=== PATIENT | female | born 1955 | race Caucasian/White ===

== ENCOUNTER 2020-11-28 06:24 | Outpatient (REF) | payer OTHER, SELFPAY ==
[2020-11-28 07:31] LABS: Alanine Aminotransferase 13 U/L (0-31); Albumin Level 4.3 g/dL (3.5-5.0); Alkaline Phosphatase 68 U/L (39-117); Aspartate Amino Transferase 20 U/L (5-31); Bilirubin Total 0.6 mg/dL (0.0-1.0); Blood Urea Nitrogen 12 mg/dL (9-16); Calcium 8.7 mg/dL (8.4-10.2); Cholesterol 169 mg/dL; Estimated Glomerular Filt Rate > 60; Glucose Fasting 107 mg/dL (60-99); HDL Cholesterol 65 mg/dL; LDL Cholesterol Calculated 86 mg/dl; Total Protein 6.3 g/dL (6.5-8.0); Triglycerides 92 mg/dL
[2020-11-28 07:45] LABS: Anion Gap 10 (12-20); Carbon Dioxide 27 mmol/L (22-29); Chloride 107 mmol/L (96-108); Potassium 4.3 mmol/L (3.3-5.1); Sodium 140 mmol/L (135-145)
== END 2020-11-28 06:25 | disposition home or self-care (01) ==
LOC: HO.LAB 06:24
PROVIDERS: Visit Provider Internal Medicine
DX: E78.00 Pure hypercholesterolemia, unspecified (principal)
CPT/HCPCS: 36415; 80053; 80061

== ENCOUNTER 2020-12-25 13:09 | Outpatient (REF) | payer OTHER, SELFPAY ==
--- NOTE | ~2020-12-25 | XR_ITS ---
EXAMINATION: RIGHT KNEE, LEFT SHOULDER AND CERVICAL SPINE X-RAYS CLINICAL INFORMATION: Pain COMPARISON: Previous knee x-ray November 2013 and cervical spine x-ray February 2012 TECHNIQUE: 3 views of the right knee, 4 views of the left shoulder and 3 views of the cervical spine FINDINGS: Right knee: There is a 3 component right knee replacement in satisfactory position. No fracture or dislocation is seen. This is new in the interval from 2013. There is no joint effusion. Left shoulder: Bone alignment is normal. No fracture or dislocation is seen. The glenohumeral joint is normal. There is arthritis at the acromioclavicular joint. Soft tissues are unremarkable. Cervical spine: Bone alignment is normal. No fracture or dislocation is seen. There is anterior fusion hardware at C5,C6 and C7. Orthopedic hardware is intact. There is bony fusion or ankylosis at the C5-C6 and C6-C7 disc spaces. There is mild degenerative spondylosis at C4-C5 and C7-T1. Prevertebral soft tissues are normal. XR/XR shoulder LT min 2V IMPRESSION: Right knee: Right knee replacement in satisfactory position. Left shoulder: Mild arthritis at the acromioclavicular joint. Cervical spine: Postsurgical change at C5-C6 and C6-C7. Mild degenerative spondylosis at C4-C5 and C7-T1.
--- NOTE | ~2020-12-25 | XR_ITS ---
EXAMINATION: RIGHT KNEE, LEFT SHOULDER AND CERVICAL SPINE X-RAYS CLINICAL INFORMATION: Pain COMPARISON: Previous knee x-ray November 2013 and cervical spine x-ray February 2012 TECHNIQUE: 3 views of the right knee, 4 views of the left shoulder and 3 views of the cervical spine FINDINGS: Right knee: There is a 3 component right knee replacement in satisfactory position. No fracture or dislocation is seen. This is new in the interval from 2013. There is no joint effusion. Left shoulder: Bone alignment is normal. No fracture or dislocation is seen. The glenohumeral joint is normal. There is arthritis at the acromioclavicular joint. Soft tissues are unremarkable. Cervical spine: Bone alignment is normal. No fracture or dislocation is seen. There is anterior fusion hardware at C5,C6 and C7. Orthopedic hardware is intact. There is bony fusion or ankylosis at the C5-C6 and C6-C7 disc spaces. There is mild degenerative spondylosis at C4-C5 and C7-T1. Prevertebral soft tissues are normal. XR/XR knee RT 3V IMPRESSION: Right knee: Right knee replacement in satisfactory position. Left shoulder: Mild arthritis at the acromioclavicular joint. Cervical spine: Postsurgical change at C5-C6 and C6-C7. Mild degenerative spondylosis at C4-C5 and C7-T1.
--- NOTE | ~2020-12-25 | XR_ITS ---
EXAMINATION: RIGHT KNEE, LEFT SHOULDER AND CERVICAL SPINE X-RAYS CLINICAL INFORMATION: Pain COMPARISON: Previous knee x-ray November 2013 and cervical spine x-ray February 2012 TECHNIQUE: 3 views of the right knee, 4 views of the left shoulder and 3 views of the cervical spine FINDINGS: Right knee: There is a 3 component right knee replacement in satisfactory position. No fracture or dislocation is seen. This is new in the interval from 2013. There is no joint effusion. Left shoulder: Bone alignment is normal. No fracture or dislocation is seen. The glenohumeral joint is normal. There is arthritis at the acromioclavicular joint. Soft tissues are unremarkable. Cervical spine: Bone alignment is normal. No fracture or dislocation is seen. There is anterior fusion hardware at C5,C6 and C7. Orthopedic hardware is intact. There is bony fusion or ankylosis at the C5-C6 and C6-C7 disc spaces. There is mild degenerative spondylosis at C4-C5 and C7-T1. Prevertebral soft tissues are normal. XR/XR cervical spine 3V IMPRESSION: Right knee: Right knee replacement in satisfactory position. Left shoulder: Mild arthritis at the acromioclavicular joint. Cervical spine: Postsurgical change at C5-C6 and C6-C7. Mild degenerative spondylosis at C4-C5 and C7-T1.
== END 2020-12-25 13:10 | disposition home or self-care (01) ==
LOC: HO.XRAY 13:09
PROVIDERS: PCP Internal Medicine; Visit Provider Internal Medicine
DX: M54.2 Cervicalgia (principal); M25.512 Pain in left shoulder; M25.561 Pain in right knee
CPT/HCPCS: 72040; 73030; 73562

== ENCOUNTER → 2021-03-08 14:28 | Outpatient (BNVA) | payer MEDICARE, OTHER, SELFPAY | PROVIDERS: PCP Internal Medicine | DX: L30.9 Dermatitis, unspecified (principal); R82.90 Unspecified abnormal findings in urine; I10 Essential (primary) hypertension; E78.00 Pure hypercholesterolemia, unspecified; Z88.3 Allergy status to other anti-infective agents; Z88.8 Allergy status to other drugs, medicaments and biological substances | CPT/HCPCS: 99202 ==

== ENCOUNTER 2021-05-31 06:32 | Outpatient (REF) | payer MEDICARE, OTHER, SELFPAY ==
[2021-05-31 08:54] LABS: Alanine Aminotransferase 18 U/L (0-31); Albumin Level 4.3 g/dL (3.5-5.0); Alkaline Phosphatase 71 U/L (39-117); Anion Gap 12 (12-20); Aspartate Amino Transferase 21 U/L (5-31); Bilirubin Total 0.6 mg/dL (0.0-1.0); Blood Urea Nitrogen 10 mg/dL (9-16); Calcium 9.5 mg/dL (8.4-10.2); Carbon Dioxide 28 mmol/L (22-29); Chloride 108 mmol/L (96-108); Cholesterol 181 mg/dL; Estimated Glomerular Filt Rate > 60; Glucose Fasting 106 mg/dL (60-99); HDL Cholesterol 74 mg/dL; LDL Cholesterol Calculated 91 mg/dl; Potassium 5.1 mmol/L (3.3-5.1); Sodium 143 mmol/L (135-145); Total Protein 6.5 g/dL (6.5-8.0); Triglycerides 80 mg/dL
== END 2021-05-31 06:33 | disposition home or self-care (01) ==
LOC: HO.LAB 06:32
PROVIDERS: PCP Internal Medicine; Visit Provider Internal Medicine
DX: E78.5 Hyperlipidemia, unspecified (principal); I10 Essential (primary) hypertension
CPT/HCPCS: 36415; 80053; 80061

== ENCOUNTER → 2021-07-11 11:00 | Outpatient (BNVA) | payer MEDICARE, OTHER, SELFPAY | PROVIDERS: PCP Internal Medicine; Visit Provider Surgery | DX: M67.432 Ganglion, left wrist (principal) | CPT/HCPCS: 99212 ==

== ENCOUNTER → 2021-08-07 13:49 | Outpatient (BNVA) | payer MEDICARE, OTHER, SELFPAY | PROVIDERS: Visit Provider Orthopaedic Surgery | DX: M67.432 Ganglion, left wrist (principal) | CPT/HCPCS: 99202 ==

== ENCOUNTER 2021-08-26 07:41 | Day surgery (SDC) | payer MEDICARE, OTHER, SELFPAY ==
[2021-08-19 11:08] VITALS: BMI 26.7
[2021-08-26] VITALS (7 sets, daily range): BP systolic 117–150; BP diastolic 63–81; PULSE 75–102; RESP 16; TEMP 36.1–36.5; O2SAT 95–100
[2021-08-26] MEDS: Lactated Ringers 1,000 ML 50 ML IVCONT (08:28)
--- NOTE | 2021-08-26 09:40 | HO.ANESPROP2 ---
HPI - Anesthesia Eval Consult details Narrative: 66 yo female patient for excisional biopsy of Left radial volar wrist ganglion PMFSH Active Problems Active Problems: All Active Problems (Updated 08/26/21 @ 08:05 by Arline Coats) Dermatitis (Acute) Ganglion cyst of volar aspect of left wrist (Acute) Ganglion cyst of dorsum of left wrist (Acute) Bladder prolapse (Acute) Left shoulder pain (Acute) Right knee pain (Acute) Neck pain (Acute) Impaired glucose tolerance (Acute) Onychogryposis (Acute) Pure hypercholesterolemia (Acute) Essential hypertension (Acute) Past Medical History Medical History (Updated 08/26/21 @ 08:05 by Arline Coats) Active asthma Bladder prolapse COVID-19 vaccine series completed Essential hypertension Ganglion cyst of dorsum of left wrist Impaired glucose tolerance Left shoulder pain Neck pain Onychogryposis Pure hypercholesterolemia Right knee pain Family History Family History Father CVD (cardiovascular disease) Stroke Mother Chronic mental illness Multiple myeloma Sister Automobile accident Family/Other Chronic mental illness Daughter In good health Daughter In good health Family history of problems with anesthesia: No Surgical History Surgical History (Updated 08/19/21 @ 11:01 by Marybel Kolb RN) History of arthroscopic knee surgery History of laparoscopic cholecystectomy History of surgical removal of ganglion cyst History of tubal ligation Hx of cervical discectomy Hx of total knee arthroplasty History of Problems with Anesthesia: Yes (PONV with anesthesia) Social History Social History (Updated 08/07/21 @ 14:18 by Gini Barkley) Housing: House Alcohol intake: former Patient Tobacco Use Status: Never used Tobacco e-Cigarette/Vaping Use: Never Used Second Hand Smoke Exposure: No Advance Directives: No Advance Directives Information Provided: No Advance Directives on File: No service: No Current occupational status: retired 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 Meds Allergies Allergy/AdvReac Type Severity Reaction Status Date / Time lisinopril Allergy Intermediate loss of Verified 08/26/21 08:06 cosciousness metronidazole [From FLAGYL] Allergy Intermediate RASH Verified 08/26/21 08:06 tetracycline [Tetracycline] Allergy Mild RASH Verified 08/26/21 08:06 Active Medications: Current Medications Lactated Ringer's (Lr) 1,000 mls @ 50 mls/hr IVCONT .Q20H OLIVE Last Admin: 08/26/21 08:28 Dose: 50 mls/hr Documented by: Exam Exam Date and Time: August 26, 2021 0940 Height,Weight and Vital Signs: Height 5 ft 7 in Weight 77.564 kg Last Vital Signs Temp 97.0 F 08/26/21 08:16 Pulse 75 08/26/21 08:16 Resp 16 08/26/21 08:16 BP 150/81 H 08/26/21 08:16 Pulse Ox 97 08/26/21 08:16 Airway Mallampati Class: II TM Dist: >3cm Neck ROM: Limited (Ok extension, limited side to side post cervical fusion) Partial: Upper Heart: RRR Lungs: CTAB Assessment and Plan Assessment Anesthesia Assessment: Anesthesia Plan Discussed and Chart Reviewed Final Anesthetic Review Family History of Problems with Anesthesia: No History of Problems with Anesthesia: Yes (PONV with anesthesia) NPO: Yes ASA Class: II Final Preanesthetic Review: No Changes in Pt Med Stat, Meds/Allgs Chart Reviewed, Consent Obtained/Reviewed and Anes Risks/Benef Reviewed Patient Risk: Low Procedure Risk: Low Assessment/Block/Sedation in SS: Assess/Block/Sedation-SS Anesthetic Plan Anesthetic Plan: GA (Dr Cifuentes's request) Disposition: Standard PACU
[2021-08-26] MEDS: Scopolamine 1.5 MG PATCH.TD.3 TRANSDERMA (10:01)
--- NOTE | 2021-08-26 10:15 | P.OP_ITS ---
Operative Note Operative Note Date of Service: 08/26/21 Narrative: Operative Note Narrative: Preop diagnosis: 1. Left recurrent Volar wrist ganglion Postop diagnosis: Same Procedure: 1. Left Volar wrist ganglion excision Surgeon: Angelique Augustin MD Anesthesia: General Findings: Recurrent left volar wrist ganglion, multi lobular Implants: None Tourniquet time: 28 minutes EBL: 5.0 ml Specimen: Volar wrist ganglion Drains: None Complications: None Disposition: Brought to the recovery room in stable condition Plan: Follow-up in 10-14 days for wound check, suture removal and to check pathology Indications: The patient is 66 years old with left recurrent volar wrist ganglion . The risks and benefits of operative treatment, including but not limited to risk of damage to blood vessels, nerves, tendons, infection, recurrence, persistent pain or numbness, incomplete resolution of preoperative symptoms, or need for further surgery were discussed with the patient and they wished to proceed with surgery. Procedure: Once consent was obtained patient was brought back to the operating suite and placed in the operating table in a supine position. . Perioperative antibiotics and anesthesia was administered by the anesthesia team. A tourn iquet was applied to the proximal aspect of the left upper extremity and the limb was prepped and draped in a standard surgical fashion. The limb was elevated exsanguinated with Esmarch bandage and the tourniquet inflated to 250 mm of mercury for a total tourniquet time of 28 minutes. A 3 cm longitudinal incision was made in line with the previous surgical incision and just volar to the current left volar wrist ganglion. The incision was made through the skin the subcutaneous tissues using a 15. Blade. Careful dissection was then made down to the level of the volar wrist ganglion using tenotomy scissors. The ganglion was noted to be multi lobular and situated on top of and just volar to the 1st dorsal compartment tendon sheath. electrocautery was utilized to cauterize several of the small arterial branches from about the ganglion. The ganglion was then carefully dissected free using tenotomy and iris scissors. The stalk to the ganglion was then isolated and cauterized using bipolar electrocautery. The ganglion was then removed and placed on the back table to be sent for histopathology. It contained clear viscous fluid consistent with a ganglion. At this point the tourniquet was deflated and hemostasis obtained with a brief period of local pressure and bipolar electrocautery. The wound was copiously irrigated with normal saline. The subcutaneous layer was closed with 4-0 Vicryl suture, and the skin edges were reapproximated with 5-0 nylon suture. The wound was infiltrated with some 1% lidocaine with epinephrine for postop pain control and a sterile dressing was applied. The patient appears to have tolerated the procedure well and with no complications. All digits were well vascularized conclusion of the case.
--- NOTE | 2021-08-26 10:15 | MHC.SHP ---
Pre-Procedural Eval Section A Date of Service: 08/26/21 The patient is an INPATIENT: No Changes since office visit: No Cold of Flu in the past 2 weeks, No New Medical Problems, No Changes in Medication and No Patient answered all questions The History & Physical has been completed within 30 days and I have reviewed it.: Yes Section B Chief Complaint: ganglion left wrist Allergies: Allergies Allergy/AdvReac Type Severity Reaction Status Date / Time lisinopril Allergy Intermediate loss of Verified 08/26/21 08:06 cosciousness metronidazole [From FLAGYL] Allergy Intermediate RASH Verified 08/26/21 08:06 tetracycline [Tetracycline] Allergy Mild RASH Verified 08/26/21 08:06 Plan I have reviewed the history and physical and performed a pertinent physical examination on my patient. No changes have occurred unless specified.
== END 2021-08-26 13:18 | disposition home or self-care (01) ==
PROVIDERS: PCP Internal Medicine; Visit Provider Orthopaedic Surgery
PROC: (CPT 25112; principal; 2021-08-26 09:10)
DX: M67.432 Ganglion, left wrist (principal); Z88.8 Allergy status to other drugs, medicaments and biological substances; J45.909 Unspecified asthma, uncomplicated; I10 Essential (primary) hypertension; R73.02 Impaired glucose tolerance (oral)
CPT/HCPCS: 25112; 88304; J0690; J1100; J1200; J2250; J2405; J3010

== ENCOUNTER → 2021-09-04 11:38 | Outpatient (BNVA) | payer MEDICARE, OTHER, SELFPAY | PROVIDERS: PCP Internal Medicine; Visit Provider Orthopaedic Surgery | DX: Z48.89 Encounter for other specified surgical aftercare (principal); Z87.39 Personal history of other diseases of the musculoskeletal system and connective tissue | CPT/HCPCS: 99212 ==

== ENCOUNTER 2021-10-08 10:53 | Outpatient (REF) | payer MEDICARE, OTHER, SELFPAY | END 2021-10-08 10:54 | disposition home or self-care (01) | LOC: HO.WFDLDS 10:53 | PROVIDERS: Visit Provider Internal Medicine | DX: U07.1 COVID-19 (principal); Z20.822 Contact with and (suspected) exposure to COVID-19 | CPT/HCPCS: C9803; U0003; U0005 ==

== ENCOUNTER 2021-10-15 07:37 | Outpatient (REF) | payer MEDICARE, OTHER, SELFPAY | END 2021-10-15 07:38 | disposition home or self-care (01) | LOC: HO.WFDLDS 07:37 | PROVIDERS: Visit Provider Internal Medicine | DX: Z20.822 Contact with and (suspected) exposure to COVID-19 (principal) | CPT/HCPCS: C9803; U0003; U0005 ==

== ENCOUNTER 2021-11-22 07:17 | Outpatient (REF) | payer MEDICARE, OTHER, SELFPAY ==
[2021-11-22 08:30] LABS: Alanine Aminotransferase 22 U/L (0-31); Albumin Level 4.2 g/dL (3.5-5.0); Alkaline Phosphatase 77 U/L (39-117); Anion Gap 10 (12-20); Aspartate Amino Transferase 26 U/L (5-31); Bilirubin Total 0.6 mg/dL (0.0-1.0); Blood Urea Nitrogen 11 mg/dL (9-16); Calcium 9.7 mg/dL (8.4-10.2); Carbon Dioxide 29 mmol/L (22-29); Chloride 107 mmol/L (96-108); Cholesterol 185 mg/dL; Estimated Glomerular Filt Rate > 60; Glucose Fasting 109 mg/dL (60-99); HDL Cholesterol 65 mg/dL; LDL Cholesterol Calculated 101 mg/dl; Potassium 4.8 mmol/L (3.3-5.1); Sodium 141 mmol/L (135-145); Total Protein 6.7 g/dL (6.5-8.0); Triglycerides 95 mg/dL
== END 2021-11-22 07:18 | disposition home or self-care (01) ==
LOC: HO.LAB 07:17
PROVIDERS: PCP Internal Medicine; Visit Provider Internal Medicine
DX: E78.5 Hyperlipidemia, unspecified (principal); E78.00 Pure hypercholesterolemia, unspecified
CPT/HCPCS: 36415; 80053; 80061

== ENCOUNTER 2021-12-26 09:05 | Outpatient (REF) | payer MEDICARE, OTHER, SELFPAY ==
[2021-12-28 16:01] LABS: HPV mRNA E6/E7 rflx Not Detected (Not Detected)
== END 2021-12-26 09:06 | disposition home or self-care (01) ==
LOC: HO.LAB 09:05
PROVIDERS: Visit Provider Advanced Practice Midwife
DX: Z01.419 Encounter for gynecological examination (general) (routine) without abnormal findings (principal); Z11.51 Encounter for screening for human papillomavirus (HPV)
CPT/HCPCS: 87624; 88142

== ENCOUNTER 2022-10-20 08:02 | Outpatient (REF) | payer MEDICARE, OTHER, SELFPAY ==
[2022-10-20 09:01] LABS: Alanine Aminotransferase 19 U/L (0-31); Albumin Level 4.4 g/dL (3.5-5.0); Alkaline Phosphatase 80 U/L (39-117); Anion Gap 11 (12-20); Aspartate Amino Transferase 23 U/L (5-31); Bilirubin Total 0.6 mg/dL (0.0-1.0); Blood Urea Nitrogen 12 mg/dL (9-16); Calcium 9.8 mg/dL (8.4-10.2); Carbon Dioxide 30 mmol/L (22-29); Chloride 105 mmol/L (96-108); Cholesterol 188 mg/dL; Estimated Glomerular Filt Rate > 60; Glucose Fasting 114 mg/dL (60-99); HDL Cholesterol 72 mg/dL; LDL Cholesterol Calculated 97 mg/dl; Sodium 141 mmol/L (135-145); Total Protein 6.7 g/dL (6.5-8.0); Triglycerides 96 mg/dL
== END 2022-10-20 08:03 | disposition home or self-care (01) ==
LOC: HO.LAB 08:02
PROVIDERS: PCP Internal Medicine; Visit Provider Internal Medicine
DX: Z00.00 Encounter for general adult medical examination without abnormal findings (principal); E78.5 Hyperlipidemia, unspecified
CPT/HCPCS: 36415; 80053; 80061

== ENCOUNTER 2023-05-18 06:43 | Outpatient (REF) | payer MEDICARE, OTHER, SELFPAY ==
[2023-05-18 07:41] LABS: Alanine Aminotransferase 18 U/L (0-31); Albumin Level 4.1 g/dL (3.5-5.0); Alkaline Phosphatase 67 U/L (39-117); Anion Gap 14 (12-20); Aspartate Amino Transferase 22 U/L (5-31); Bilirubin Total 0.5 mg/dL (0.0-1.0); Blood Urea Nitrogen 11 mg/dL (9-16); Calcium 9.6 mg/dL (8.4-10.2); Carbon Dioxide 24 mmol/L (22-29); Chloride 105 mmol/L (96-108); Cholesterol 192 mg/dL; Estimated Glomerular Filt Rate > 60; Glucose Fasting 111 mg/dL (60-99); HDL Cholesterol 73 mg/dL; LDL Cholesterol Calculated 104 mg/dl; Potassium 4.4 mmol/L (3.3-5.1); Sodium 139 mmol/L (135-145); Total Protein 6.8 g/dL (6.5-8.0); Triglycerides 75 mg/dL
== END 2023-05-18 06:44 | disposition home or self-care (01) ==
LOC: HO.LAB 06:43
PROVIDERS: PCP Internal Medicine; Visit Provider Internal Medicine
DX: R73.02 Impaired glucose tolerance (oral) (principal); E78.5 Hyperlipidemia, unspecified
CPT/HCPCS: 36415; 80053; 80061

== ENCOUNTER 2023-07-08 08:08 | Outpatient (AMB) | payer MEDICARE, OTHER, SELFPAY ==
--- NOTE | 2023-07-08 08:10 | A.OFFPC_ITS ---
Vital Signs 07/08/23 08:11 Height 5 ft 8 in Weight 180 lb BMI 27.4 BP 124/80 Blood Pressure Location Lt brachial Position Sitting Intake Visit Reasons: Annual Exam Intake Note: Patient here for an annual physical exam Saddle Lining Stitcher Required: No Accompanied by: Self / Same As Patient Allergies lisinopril Allergy (Intermediate, Verified 07/08/23 08:22) loss of cosciousness metronidazole [From FLAGYL] Allergy (Intermediate, Verified 07/08/23 08:22) RASH tetracycline [Tetracycline] Allergy (Mild, Verified 07/08/23 08:22) RASH Medication List - Last Reconciled 07/08/23 by Edie Rucker MD albuterol sulfate 90 mcg/actuation 2 puffs inhalation Q6H PRN gabapentin 800 mg PO BEDTIME 90 days metoprolol succinate ER 25 mg PO DAILY simvastatin 10 mg PO BEDTIME Tobacco use date assessed: 11/04/22 Fall risk assessment: No Falls in past year Last assessed Fall Risk: 07/08/23 Dental Screening Dental Screen Date: 07/08/23 Did you have a dental visit in the last 12 months?: Yes Did you have a dental problem in the last 6 months where you did not have access to dental care?: No Was dental information given to patient?: Patient has dentist HPI HPI Comments History of Present Illness Details This is a 68 year female comes for her physical exam. Pap Smear done 2021. Mammogram done January 2023. Colonoscopy done 2015 and next colonoscopy should be 2025. Last pneumonia vaccine was at 59 years old. Will receive another pneumonia vaccine today. Labs were discussed. Has impaired glucose tolerance with no symptoms. No chest pain or shortness of breath. PFSH Medical History Active asthma COVID-19 vaccine series completed Ganglion cyst of volar aspect of left wrist Ganglion cyst of dorsum of left wrist Bladder prolapse Left shoulder pain Right knee pain Neck pain Impaired glucose tolerance Onychogryposis Pure hypercholesterolemia Essential hypertension Surgical History History of colonoscopy History of surgical removal of ganglion cyst Hx of cervical discectomy Hx of total knee arthroplasty History of arthroscopic knee surgery History of laparoscopic cholecystectomy History of tubal ligation Family History Father CVD (cardiovascular disease) Stroke Mother Chronic mental illness Multiple myeloma Sister Automobile accident Family/Other Chronic mental illness Daughter In good health Daughter In good health Social History (Updated 07/08/23 @ 08:26 by Edie Rucker MD) Housing: House Alcohol intake: former Patient Tobacco Use Status: Former Tobacco user e-Cigarette/Vaping Use: Never Used Second Hand Smoke Exposure: No service: No Current occupational status: retired 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 Francisco Gold, Laquita Deleon, Jimmy Obrien and colleagues, with an educational rafael from [employer]. Review of Systems Const All systems reviewed & are unremarkable except as noted in HPI and below Eyes Reports no additional complaints, Denies change in vision and Denies other visual disturbances Card Denies chest pain at rest, Denies chest pain with activity, Denies edema, Denies irregular heart rhythm, Denies claudication, Denies dyspnea, Denies dyspnea on exertion, Denies orthopnea, Denies paroxysmal nocturnal dyspnea and Denies slow heart rate Resp Denies cough, Denies dyspnea and Denies dyspnea on exertion GI Denies abdominal pain, Denies change in bowel habits, Denies excessive flatus, Denies nausea and Denies vomiting Denies urinary incontinence, Denies urinary hesitancy and Denies urinary urgency Musc Denies abnormal gait, Denies atrophy, Denies deformity and Denies limited range of motion Skin/Breast Denies bleeding lesions, Denies changing lesions and Denies rash Neuro Denies abnormal gait and Denies lack of coordination Physical exam (Primary Care) Vital Signs: Last Vital Signs BP 124/80 07/08/23 08:11 BMI result Body Mass Index 27.4 Tobacco/Smoking Status: Tobacco use Status Tobacco use date assessed 11/04/22 07/08/23 08:16 Patient Tobacco Use Status Former Tobacco user 07/08/23 08:26 Tobacco use type Cigarette 07/08/23 08:26 e-Cigarette/Vaping Use Never Used 07/08/23 08:26 Thrive Assessment: Date of Thrive Assessment Date Thrive assessed 11/04/22 07/08/23 08:16 Const Orientation/consciousness: patient oriented x3 HENMT Head: Yes normal to inspection, Yes normocephalic and Yes atraumatic Ears: external ears normal Eyes General: appearance normal, both eyes and all related structures Eyelids: Yes eyelids normal Conjunctivae: conjunctivae normal Neck Neck: Yes normal visual inspection and Yes supple Resp Effort & Inspection: normal respiratory effort Auscultation: clear to auscultation bilaterally Cardio Jugular venous distension: no JVD Rate: regular rate Rhythm: regular rhythm Heart sounds: S1 normal heart sound present and S2 normal heart sound present GI Inspection: Yes normal to inspection Palpation (GI): Soft to palpation and nontender Auscultation: normal bowel sounds Skin General skin exam: no rashes or lesions noted Neuro General: patient oriented x3 and no focal motor deficits Extrem General: Yes full ROM Psych Appearance: grossly normal Immunizations pneumoc 20-gail conj-dip cr(PF) 0.5 mL IM syringe Performing Provider: Edie Rucker MD Performing Location: [facility] Administered by: FREDERIC Allison on 07/08/23 08:41 Dose Route Admin Location Dispensed Lot Number Expiration Date NDC Hearing Impaired Itinerant Teacher 0.5 mL IM Left Deltoid 0.5 mL [id number] 07/12/24 9084-3679-92 [employer] VIS Given Date VIS Provided VIS Publication Date 07/08/23 Single Vaccine 21 Eligibility Eligibility Date Funding Source Not [facility] Eligible 07/08/23 Private Assessment and Plan Assessment & Plan (1) Physical exam: Code(s): Z00.00 - Encounter for general adult medical examination without abnormal findings Plan: Repeat in a year. Orders: Orders Pneumococcal 20 Immunization Today Z23 - Encounter for immunization Medications: New Ventolin HFA 90 mcg/actuation (albuterol sulfate) 2 puffs inhalation Q6H PRN 18 grams 2RF shortness of breath or wheezing 30 days NS J45.909 - Unspecified asthma, uncomplicated Coding Level of Care Code Est Pt Prev Care >65y(59427) Diagnoses Physical exam Z00.00 Time Spent (min) 33
[2023-07-08 08:11] VITALS: BP 124/80; BMI 27.4
== END 2023-07-08 08:40 | disposition home or self-care (01) ==
PROVIDERS: Visit Provider Internal Medicine
DX: Z00.00 Encounter for general adult medical examination without abnormal findings (principal); Z23 Encounter for immunization
CPT/HCPCS: 90471; 90677; 99397

== ENCOUNTER 2023-09-23 08:54 | Outpatient (AMB) | payer MEDICARE, OTHER, SELFPAY ==
--- NOTE | 2023-09-23 08:59 | A.OFFVIS_ITS ---
Intake Vital Signs 09/23/23 09:06 Height 5 ft 8 in Weight 182 lb BMI 27.7 BP 108/66 Blood Pressure Location Lt brachial Position Sitting Pulse 58 Pulse Source Pulse Oximeter Pulse Oximetry (%) 98 Oxygen Delivery Method Room Air Intake Visit Reasons: SAWV Allergies lisinopril Allergy (Intermediate, Verified 09/23/23 09:13) loss of cosciousness metronidazole [From FLAGYL] Allergy (Intermediate, Verified 09/23/23 09:13) RASH tetracycline [Tetracycline] Allergy (Mild, Verified 09/23/23 09:13) RASH Medication List - Last Reconciled 09/23/23 by BONNIE Trevizo gabapentin 800 mg PO BEDTIME 90 days metoprolol succinate ER 25 mg PO DAILY simvastatin 10 mg PO BEDTIME Ventolin HFA 90 mcg/actuation (albuterol sulfate) 2 puffs inhalation Q6H PRN 30 days NS HPI SAWV HPI Details Patient is a 68-year-old female who presents today for subsequent wellness visit. Patient of Dr. Mcclendon. Today we discussed patient's need for bone density screening, patient has declined. Colonoscopy 07/2016 and repeat in 10 years. Pap smear normal 12/2021. Mammogram normal 01/2023. Up-to-date with immunizations. [place] of care was reviewed with the patient and she was provided with a screening schedule. Patient has health care proxy and MOLST forms at home and she will provide office with copies. [facility] Medical History Breast mass Active asthma COVID-19 vaccine series completed Ganglion cyst of volar aspect of left wrist Ganglion cyst of dorsum of left wrist Bladder prolapse Left shoulder pain Right knee pain Neck pain Impaired glucose tolerance Onychogryposis Pure hypercholesterolemia Essential hypertension Surgical History History of colonoscopy History of surgical removal of ganglion cyst Hx of cervical discectomy Hx of total knee arthroplasty History of arthroscopic knee surgery History of laparoscopic cholecystectomy History of tubal ligation Family History Father CVD (cardiovascular disease) Stroke Mother Chronic mental illness Multiple myeloma Sister Automobile accident Family/Other Chronic mental illness Daughter In good health Daughter In good health Social History Housing: House Alcohol intake: former Patient Tobacco Use Status: Former Tobacco user e-Cigarette/Vaping Use: Never Used Second Hand Smoke Exposure: No service: No Current occupational status: retired 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 Cognitive needs: No Hearing needs: No Vision needs: Yes Questionnaire Medicare Wellness Checkup [age] 65-70 What gender do you identify with?: female During the past 4 weeks, how much have you been bothered by emotional problems such as feeling anxious, depressed, irritable, sad or downhearted, and blue?: not at all During the past 4 weeks, has your physical & emotional health limited your social activities with family, friends, neighbors, or groups?: not at all During the past 4 weeks, how much bodily pain have you generally had?: moderate pain During the past 4 weeks, was someone available to help you if you needed & wanted help?: yes, as much as I wanted During the past 4 weeks, what was the hardest physical activity you could do for at least 2 minutes?: heavy Can you get to places out of walking distance without help? (For eg., can you travel alone on buses, taxis or drive your car?): Yes Can you go shopping for groceries or clothes without someone's help?: Yes Can you prepare your own meals?: Yes Can you do your housework without help?: Yes Because of any health problems, do you need the help of another person with your personal care needs such as eating, bathing, dressing or getting around the house?: No Can you handle your own money without help?: Yes During the past 4 weeks, how would you rate your health in general?: very good During the past 4 weeks how have things been going for you?: very well; could hardly better Are you having difficulties driving your car?: no Do you always fasten your seat belt when you are in a car?: yes, usually During past 4 weeks, have you been bothered by the following: never: Falling or dizzy when standing up, Sexual problems?, Trouble eating well?, Teeth or denture problems? and Problems using the telephone? and sometimes: Tiredness or fatigue? Have you fallen 2 or more times in the past year?: No Are you afraid of falling?: No Are you a smoker?: no During the past 4 weeks, how many drinks of wine, beer, or other alcoholic beverages did you have?: no alcohol at all Do you exercise for about 20 minutes 3 or more times a week?: yes, most of the time Have you been given information to help with the following?: yes: Hazards in your house that might hurt you? and yes: Keeping track of your medications? How often do you have trouble taking medicines the way you have been told to take them?: I always take medicine as prescribed How confident are you that you can control & manage most of your health problems?: very confident What is your race?: White Mini Mental State Exam (MMSE) Orientation What is the (year) (season) (date) (day) (month)?: year, season, date, day and month Score Score: 5 Activity of Daily Living Bathing - sponge bath, tub bath or shower: receives no assistance (gets in/out by self, if usual bathing means Dressing - getting clothes from closets & drawers, including inner/outer garments & fasteners.: gets clothes & gets completely dressed without help Toileting - going to the 'toilet room' for urine/bowel elimination & cleaning self/arranging clothes: goes to toilet room, cleans self, arranges clothes without help Transfer: moves in & out of bed and chair without help (may use support object) Continence: controls urination/bowel movements completely by self Feeding: feeds self without help Total Score: 0 Information obtained from: patient Using telephone: independent Traveling: independent Shopping: independent Preparing meals: independent Housework: independent Taking medicine: independent Managing money: independent PHQ-9 Over the last 2 weeks, how often have you been bothered by any of the following problems? 1. Little interest or pleasure in doing things: not at all 2. Feeling down, depressed, or hopeless: not at all 3. Trouble falling or staying asleep, or sleeping too much: not at all 4. Feeling tired or having little energy: not at all 5. Poor appetite or overeating: not at all 6. Feeling bad about yourself - or that you are a failure or have let yourself or your family down: not at all 7. Trouble concentrating on things, such as reading the newspaper or watching television: not at all 8. Moving or speaking so slowly that other people could have noticed. Or the opposite - being so fidgety or restless that you have been moving around a lot more than usual: not at all 9. Thoughts that you would be better off or of hurting yourself in some way: not at all Total score: 0 Depression Screening Interpretation: Negative Depression Screening Done: Yes 64396 - PHQ-9 Billing: Yes Source: Developed by Drs. Francisco Gold, Laquita Deleon, Jimmy Obrien and colleagues, with an educational rafael from [employer]. Physical Exam Vital Signs: Last Vital Signs Pulse 58 09/23/23 09:06 BP 108/66 09/23/23 09:06 Pulse Ox 98 09/23/23 09:06 Oxygen Delivery Method Room Air 09/23/23 09:06 BMI result Body Mass Index 27.7 Const General: cooperative and no acute distress Orientation/consciousness: patient oriented x3 HEENT Other: Whisper test: pass Neuro Other: Balance: Normal Get up and walk: able to Romberg: negative Tandem gait: able to General: patient oriented x3 Assessment & Plan Assessment & Plan (1) Adult general medical exam: Code(s): Z00.00 - Encounter for general adult medical examination without abnormal findings Plan: Repeat in 1 year (2) Impaired glucose tolerance: Code(s): R73.02 - Impaired glucose tolerance (oral) Plan: Low-carbohydrate diet (3) Pure hypercholesterolemia: Code(s): E78.00 - Pure hypercholesterolemia, unspecified Plan: Simvastatin 10 mg at bedtime Low-cholesterol diet (4) Essential hypertension: Code(s): I10 - Essential (primary) hypertension Plan: Metoprolol 25 mg daily Low-sodium diet and exercise as tolerated (5) Mild asthma: Code(s): J45.909 - Unspecified asthma, uncomplicated Plan: Continue Ventolin p.r.n. 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
[2023-09-23 09:06] VITALS: BP 108/66; PULSE 58; O2SAT 98; BMI 27.7
== END 2023-09-23 09:22 | disposition home or self-care (01) ==
PROVIDERS: Visit Provider Nurse Practitioner Family
DX: Z00.00 Encounter for general adult medical examination without abnormal findings (principal); R73.02 Impaired glucose tolerance (oral); E78.00 Pure hypercholesterolemia, unspecified; I10 Essential (primary) hypertension; J45.909 Unspecified asthma, uncomplicated
CPT/HCPCS: 1124F; G0439

== ENCOUNTER 2024-01-06 07:58 | Outpatient (AMB) | payer MEDICARE, OTHER, SELFPAY ==
[2024-01-06 08:11] VITALS: BP 120/70; BMI 28.0
--- NOTE | 2024-01-06 08:11 | MHC.PC.OV ---
Vital Signs 01/06/24 08:11 Height 5 ft 8 in Weight 184 lb BMI 28.0 BP 120/70 Blood Pressure Location Lt brachial Position Sitting Intake Visit Reasons: asthma Intake Note: Patient here for a follow up Asthma Retail Service Technician Required: No Accompanied by: Self / Same As Patient Allergies lisinopril Allergy (Intermediate, Verified 01/06/24 08:40) loss of cosciousness metronidazole [From FLAGYL] Allergy (Intermediate, Verified 01/06/24 08:40) RASH tetracycline [Tetracycline] Allergy (Mild, Verified 01/06/24 08:40) RASH Medication List - Last Reconciled 01/06/24 by Edie Rucker MD gabapentin 800 mg PO BEDTIME 90 days metoprolol succinate ER 25 mg PO DAILY simvastatin 10 mg PO BEDTIME Ventolin HFA 90 mcg/actuation (albuterol sulfate) 2 puffs inhalation Q6H PRN 30 days NS Tobacco use date assessed: 01/06/24 Fall risk assessment: No Falls in past year Last assessed Fall Risk: 01/06/24 Dental Screening Dental Screen Date: 01/06/24 Did you have a dental visit in the last 12 months?: Yes Did you have a dental problem in the last 6 months where you did not have access to dental care?: No Was dental information given to patient?: Patient has dentist HPI HPI Comments History of Present Illness Details This is a 68-year-old female with hypertension, pure hypercholesterolemia, mild asthma cervical radiculopathy that comes today for follow-up on her conditions. Blood pressure stable. On statins for cholesterol which has been stable. 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 On gabapentin for her cervical radiculopathy which have stay about the same. No chest pain or shortness of breath. [facility] Medical History (Updated 01/06/24 @ 10:33 by Edie Rucker MD) Breast mass Active asthma COVID-19 vaccine series completed Ganglion cyst of volar aspect of left wrist Ganglion cyst of dorsum of left wrist Bladder prolapse Left shoulder pain Right knee pain Neck pain Impaired glucose tolerance Onychogryposis Pure hypercholesterolemia Essential hypertension Surgical History History of colonoscopy History of surgical removal of ganglion cyst Hx of cervical discectomy Hx of total knee arthroplasty History of arthroscopic knee surgery History of laparoscopic cholecystectomy History of tubal ligation Family History Father CVD (cardiovascular disease) Stroke Mother Chronic mental illness Multiple myeloma Sister Automobile accident Family/Other Chronic mental illness Daughter In good health Daughter In good health Social History Housing: House Alcohol intake: former Patient Tobacco Use Status: Former Tobacco user Tobacco use type: Cigarette e-Cigarette/Vaping Use: Never Used Second Hand Smoke Exposure: No service: No Current occupational status: retired 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 1. Little interest or pleasure in doing things: not at all 2. Feeling down, depressed, or hopeless: not at all 3. Trouble falling or staying asleep, or sleeping too much: not at all 4. Feeling tired or having little energy: not at all 5. Poor appetite or overeating: not at all 6. Feeling bad about yourself - or that you are a failure or have let yourself or your family down: not at all 7. Trouble concentrating on things, such as reading the newspaper or watching television: not at all 8. Moving or speaking so slowly that other people could have noticed. Or the opposite - being so fidgety or restless that you have been moving around a lot more than usual: not at all 9. Thoughts that you would be better off or of hurting yourself in some way: not at all Total score: 0 Source: Developed by Drs. Francisco Gold, Laquita Deleon, Jimmy Obrien and colleagues, with an educational rafael from [employer]. Thrive Questionnaire Date Thrive assessed: 01/06/24 I am a: Patient What is your living situation today?: I have a steady place to live Within the past 12 months, did the food you bought not last and you didn't have the money to get more?: Never true Within the past 12 months, did you worry whether your food would run out before you got money to buy more?: Never true Do you have trouble paying for medicines?: No Do you have trouble getting transportation to medical appointments?: No Do you have trouble paying your heating and electricity bill?: No Do you have trouble taking care of your child, family member or friend?: No Do you have trouble with day-to-day activities such as bathing, preparing meals, shopping, managing finances, etc.?: No Are you currently unemployed and looking for a job?: No Are you interested in more education?: No Please select the resources that you would like help with: None Currently or been in a relationship where the following occur: no concerns reported THRIVE Score: 0 AUDIT C Alcohol Use Questionnaire (AUDIT-C) 1. How often do you have a drink containing alcohol?: Never Total Score: 0 LAKE-7 AMB Questionnaire LAKE-7 Date LAKE - 7 assessed: 01/06/24 Feeling nervous, anxious, or on edge: 0 = Not at all Not being able to stop or control worryin = Not at all Worrying too much about different things: 0 = Not at all Trouble relaxin = Not at all Being so restless that it is hard to sit still: 0 = Not at all Becoming easily annoyed or irritable: 0 = Not at all Feeling afraid as if something awful might happen: 0 = Not at all Total LAKE-7 score (0-4 normal; 5-9 mild; 10-14 moderate; 15-21 severe): 0 Source: Developed by Drs. Francisco Gold, Laquita Deleon, Jimmy Obrien and colleagues, with an educational rafael from [employer]. Review of Systems Const All systems reviewed & are unremarkable except as noted in HPI and below Eyes Reports no additional complaints, Denies change in vision and Denies other visual disturbances Card Denies chest pain at rest, Denies chest pain with activity, Denies edema, Denies irregular heart rhythm, Denies claudication, Denies dyspnea, Denies dyspnea on exertion, Denies orthopnea, Denies paroxysmal nocturnal dyspnea and Denies slow heart rate Resp Denies cough, Denies dyspnea and Denies dyspnea on exertion GI Denies abdominal pain, Denies change in bowel habits, Denies excessive flatus, Denies nausea and Denies vomiting Denies urinary incontinence, Denies urinary hesitancy and Denies urinary urgency Physical exam (Primary Care) Vital Signs: Last Vital Signs BP 120/70 01/06/24 08:11 BMI result Body Mass Index 28.0 Tobacco/Smoking Status: Tobacco use Status Tobacco use date assessed 01/06/24 01/06/24 08:15 Patient Tobacco Use Status Former Tobacco user 01/06/24 08:15 Tobacco use type Cigarette 01/06/24 08:15 e-Cigarette/Vaping Use Never Used 01/06/24 08:15 PHQ-9: PHQ-9 Score PHQ-9: Total score 0 01/06/24 08:43 Thrive Assessment: Date of Thrive Assessment Date Thrive assessed 01/06/24 01/06/24 08:17 Currently or been in a relationship where the following occur: no concerns reported Resp Effort & Inspection: normal respiratory effort Auscultation: clear to auscultation bilaterally Cardio Jugular venous distension: no JVD Rate: regular rate Rhythm: regular rhythm Heart sounds: S1 normal heart sound present and S2 normal heart sound present Extrem General: Yes full ROM Assessment and Plan Assessment & Plan (1) Mild asthma: Code(s): J45.909 - Unspecified asthma, uncomplicated Qualifiers: Asthma persistence: persistent Asthma complication type: uncomplicated Qualified Code(s): J45.30 - Mild persistent asthma, uncomplicated Plan: Use rescue inhaler as needed. (2) Cervical radiculopathy: Code(s): M54.12 - Radiculopathy, cervical region Plan: Continue gabapentin. (3) Pure hypercholesterolemia: Code(s): E78.00 - Pure hypercholesterolemia, unspecified Plan: Continue statins. Start low-cholesterol diet. (4) Essential hypertension: Code(s): I10 - Essential (primary) hypertension Plan: Continue metoprolol. Orders: Orders Lipid Panel 7 Months E78.5 - Hyperlipidemia, unspecified Comprehensive Lee. Panel Fast 7 Months Z00.00 - Encounter for general adult medical examination without abnormal findings Coding Level of Care Code Est Pt Level 4 (20711) Diagnoses Mild persistent asthma without complication J45.30 Asthma persistence: persistent Asthma complication type: uncomplicated Cervical radiculopathy M54.12 Pure hypercholesterolemia E78.00 Essential hypertension I10 Time Spent (min) 20
== END 2024-01-06 08:48 | disposition home or self-care (01) ==
PROVIDERS: PCP Internal Medicine; Visit Provider Internal Medicine
DX: J45.30 Mild persistent asthma, uncomplicated (principal); M54.12 Radiculopathy, cervical region; E78.00 Pure hypercholesterolemia, unspecified; I10 Essential (primary) hypertension
CPT/HCPCS: 99214

== ENCOUNTER 2024-06-22 07:33 | Outpatient (REF) | payer MEDICARE, OTHER, SELFPAY ==
[2024-06-22 08:32] LABS: Alanine Aminotransferase 16 U/L (0-31); Albumin Level 4.2 g/dL (3.5-5.0); Alkaline Phosphatase 71 U/L (39-117); Anion Gap 14 (12-20); Aspartate Amino Transferase 22 U/L (5-31); Bilirubin Total 0.6 mg/dL (0.0-1.0); Blood Urea Nitrogen 8 mg/dL (9-16); Calcium 9.5 mg/dL (8.4-10.2); Carbon Dioxide 27 mmol/L (22-29); Chloride 108 mmol/L (96-108); Cholesterol 202 mg/dL (<200); Estimated Glomerular Filt Rate > 60; Glucose Fasting 117 mg/dL (60-99); HDL Cholesterol 74 mg/dL (>40); LDL Cholesterol Calculated 108 mg/dL (<100); Potassium 4.5 mmol/L (3.3-5.1); Sodium 144 mmol/L (135-145); Total Protein 6.8 g/dL (6.5-8.0); Triglycerides 100 mg/dL (<150)
== END 2024-06-22 07:34 | disposition home or self-care (01) ==
LOC: HO.LAB 07:33
PROVIDERS: PCP Internal Medicine; Visit Provider Internal Medicine
DX: Z00.00 Encounter for general adult medical examination without abnormal findings (principal); E78.5 Hyperlipidemia, unspecified
CPT/HCPCS: 36415; 80053; 80061

== ENCOUNTER 2024-07-27 12:57 | Outpatient (AMB) | payer MEDICARE, OTHER, SELFPAY ==
[2024-07-27 13:03] VITALS: BP 126/80; BMI 26.8
--- NOTE | 2024-07-27 13:03 | MHC.PC.OV ---
Vital Signs 07/27/24 13:03 Height 5 ft 8 in Weight 176 lb BMI 26.8 BP 126/80 Blood Pressure Location Lt brachial Position Sitting Intake Visit Reasons: annual exam Intake Note: Patient here for a physical exam Surgery Consultant Required: No Accompanied by: Self / Same As Patient Allergies lisinopril Allergy (Intermediate, Verified 07/27/24 13:16) loss of cosciousness metronidazole [From FLAGYL] Allergy (Intermediate, Verified 07/27/24 13:16) RASH tetracycline [Tetracycline] Allergy (Mild, Verified 07/27/24 13:16) RASH Medication List - Last Reconciled 07/27/24 by Edie Rucker MD gabapentin 800 mg PO BEDTIME 90 days metoprolol succinate ER 25 mg PO DAILY simvastatin 10 mg PO BEDTIME Ventolin HFA 90 mcg/actuation (albuterol sulfate) 2 puffs inhalation Q6H PRN 30 days NS Tobacco use date assessed: 01/06/24 Fall risk assessment: No Falls in past year Last assessed Fall Risk: 07/27/24 Dental Screening Dental Screen Date: 07/27/24 Did you have a dental visit in the last 12 months?: Yes Did you have a dental problem in the last 6 months where you did not have access to dental care?: No Was dental information given to patient?: Patient has dentist HPI HPI Comments History of Present Illness Details This is a 69-year-old female with cervical radiculopathy that comes for her physical exam. Mammogram done 2023 was normal. Colonoscopy done 2015 was normal and next colonoscopy should be 2025. Has not had a DEXA scan in over 2 years and I will order a DEXA. No need for Pap smear due to age. Complains of neck pain with left hand numbness and I will refer her to [facility] for evaluation. Also complains of right hand numbness and has been follow by hand surgery which did local steroid injection in February and did work for few months but now has the pain, weakness and numbness. She will call them back for another appointment. Labs were discussed. Blood glucose will be repeated. She has lost weight but admits have been very active. Denies polyuria or polydipsia. [facility] Medical History Breast mass Active asthma COVID-19 vaccine series completed Ganglion cyst of volar aspect of left wrist Ganglion cyst of dorsum of left wrist Bladder prolapse Left shoulder pain Right knee pain Neck pain Impaired glucose tolerance Onychogryposis Pure hypercholesterolemia Essential hypertension Surgical History (Updated 07/27/24 @ 13:31 by Edie Rucker MD) History of colonoscopy History of surgical removal of ganglion cyst Hx of cervical discectomy Hx of total knee arthroplasty History of arthroscopic knee surgery History of laparoscopic cholecystectomy History of tubal ligation Family History (Updated 07/27/24 @ 13:32 by Edie Rucker MD) Father CVD (cardiovascular disease) Stroke Mother Chronic mental illness Multiple myeloma Stroke Sister Automobile accident Family/Other Chronic mental illness Daughter In good health Daughter In good health Social History Housing: House Alcohol intake: former Patient Tobacco Use Status: Former Tobacco user Tobacco use type: Cigarette e-Cigarette/Vaping Use: Never Used Second Hand Smoke Exposure: No service: No Current occupational status: retired 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 1. Little interest or pleasure in doing things: not at all 2. Feeling down, depressed, or hopeless: not at all 3. Trouble falling or staying asleep, or sleeping too much: not at all 4. Feeling tired or having little energy: not at all 5. Poor appetite or overeating: not at all 6. Feeling bad about yourself - or that you are a failure or have let yourself or your family down: not at all 7. Trouble concentrating on things, such as reading the newspaper or watching television: not at all 8. Moving or speaking so slowly that other people could have noticed. Or the opposite - being so fidgety or restless that you have been moving around a lot more than usual: not at all 9. Thoughts that you would be better off or of hurting yourself in some way: not at all Total score: 0 Depression Screening Interpretation: Negative Depression Screening Done: Yes 07233 - PHQ-9 Billing: Yes Source: Developed by Drs. Francisco Gold, Laquita BJimmy Reno and colleagues, with an educational rafael from [employer]. Thrive Questionnaire Date Thrive assessed: 07/20/24 I am a: Patient What is your living situation today?: I have a steady place to live Within the past 12 months, did the food you bought not last and you didn't have the money to get more?: Never true Within the past 12 months, did you worry whether your food would run out before you got money to buy more?: Never true Do you have trouble paying for medicines?: No Do you have trouble getting transportation to medical appointments?: No Do you have trouble paying your heating and electricity bill?: No Do you have trouble taking care of your child, family member or friend?: No Do you have trouble with day-to-day activities such as bathing, preparing meals, shopping, managing finances, etc.?: No Are you currently unemployed and looking for a job?: No Are you interested in more education?: No Please select the resources that you would like help with: None Currently or been in a relationship where the following occur: No concerns reported THRIVE Score: 0 AUDIT C Alcohol Use Questionnaire (AUDIT-C) 1. How often do you have a drink containing alcohol?: Never Total Score: 0 Score Reviewed/Action Taken: No LAKE-7 AMB Questionnaire LAKE-7 Date LAKE - 7 assessed: 07/27/24 Feeling nervous, anxious, or on edge: 0 = Not at all Not being able to stop or control worryin = Not at all Worrying too much about different things: 0 = Not at all Trouble relaxin = Not at all Being so restless that it is hard to sit still: 0 = Not at all Becoming easily annoyed or irritable: 0 = Not at all Feeling afraid as if something awful might happen: 0 = Not at all Total LAKE-7 score (0-4 normal; 5-9 mild; 10-14 moderate; 15-21 severe): 0 Source: Developed by Drs. Francisco Gold, Jimmy Alexandre and colleagues, with an educational rafael from [employer]. LAKE-7 Assessment Billing LAKE-7 Assessment Tool: LAKE-7 Assessment 32819 Review of Systems Const All systems reviewed & are unremarkable except as noted in HPI and below ENT Reports dizziness and Reports neck pain Card Denies chest pain at rest, Denies chest pain with activity, Denies edema, Denies irregular heart rhythm, Denies claudication, Denies dyspnea, Denies dyspnea on exertion, Denies orthopnea, Denies paroxysmal nocturnal dyspnea and Denies slow heart rate Resp Denies cough, Denies dyspnea and Denies dyspnea on exertion GI Denies abdominal pain, Denies change in bowel habits, Denies excessive flatus, Denies nausea and Denies vomiting Denies urinary incontinence, Denies urinary hesitancy and Denies urinary urgency Musc Reports neck pain and Reports numbness Neuro Reports dizziness and Reports numbness Physical exam (Primary Care) Vital Signs: Last Vital Signs BP 126/80 07/27/24 13:03 BMI result Body Mass Index 26.8 Tobacco/Smoking Status: Tobacco use Status Tobacco use date assessed 01/06/24 07/27/24 13:06 Patient Tobacco Use Status Former Tobacco user 07/27/24 13:06 Tobacco use type Cigarette 07/27/24 13:06 e-Cigarette/Vaping Use Never Used 07/27/24 13:06 PHQ-9: PHQ-9 Score PHQ-9: Total score 0 07/27/24 13:17 Depression Screening Interpretation: Negative Thrive Assessment: Date of Thrive Assessment Date Thrive assessed 07/20/24 07/27/24 13:06 Currently or been in a relationship where the following occur: No concerns reported [facility] Head: Yes normal to inspection, Yes normocephalic and Yes atraumatic Ears: external ears normal Eyes General: appearance normal, both eyes and all related structures Eyelids: Yes eyelids normal Conjunctivae: conjunctivae normal Neck Neck: Yes normal visual inspection and Yes tender Resp Effort & Inspection: normal respiratory effort Auscultation: clear to auscultation bilaterally Cardio Jugular venous distension: no JVD Rate: regular rate Rhythm: regular rhythm Heart sounds: S1 normal heart sound present and S2 normal heart sound present GI Inspection: Yes normal to inspection Palpation (GI): Soft to palpation and nontender Auscultation: normal bowel sounds Skin General skin exam: no rashes or lesions noted Neuro General: no focal motor deficits Extrem General: Yes full ROM Psych Appearance: grossly normal Coding Level of Care Code Est Pt Level 3 (26237) Est Pt Prev Care >65y(12044) Diagnoses Physical exam Z00.00 Cervical radiculopathy M54.12 Additional Codes LAKE-7 Assessment Billing - LAKE-7 Assessment Tool: LAKE-7 Assessment 45584 ([id number]) Time Spent (min) 35 Assessment & Plan Assessment & Plan (1) Physical exam: Code(s): Z00.00 - Encounter for general adult medical examination without abnormal findings Category: Medical Plan: Repeat in a year. (2) Cervical radiculopathy: Code(s): M54.12 - Radiculopathy, cervical region Category: Medical Plan: Referred to Ortho. Orders: Orders XR DEXA axial skeleton Today Z78.0 - Asymptomatic menopausal state Referrals Orthopedics Referral M54.12 - Radiculopathy, cervical region
== END 2024-07-27 13:52 | disposition home or self-care (01) ==
PROVIDERS: PCP Internal Medicine; Visit Provider Internal Medicine
DX: Z00.00 Encounter for general adult medical examination without abnormal findings (principal); M54.12 Radiculopathy, cervical region

== ENCOUNTER → 2024-07-27 12:57 | Outpatient (BNVA) | payer MEDICARE, OTHER, SELFPAY | PROVIDERS: PCP Internal Medicine; Visit Provider Internal Medicine | DX: Z00.01 Encounter for general adult medical examination with abnormal findings (principal); M54.12 Radiculopathy, cervical region; I10 Essential (primary) hypertension; J45.909 Unspecified asthma, uncomplicated | CPT/HCPCS: 96127; 99397 ==

== ENCOUNTER 2024-08-11 13:12 | Outpatient (REF) | payer MEDICARE, OTHER, SELFPAY ==
--- NOTE | ~2024-08-11 | MM_ITS ---
EXAMINATION: BONE DENSITOMETRY CLINICAL INDICATION: Menopause. COMPARISON: Previous BD dated 05/04/2020 and baseline BD dated 12/25/2016. TECHNIQUE: Using a [employer] DXA System (software version: 13.1) manufactured by [employer], dual-energy x-ray absorptiometry was performed of the lumbar spine and left hip. The images are of good technical quality. Summary results are attached. FINDINGS: LEFT FEMUR, NECK: Current: BMD 0.975 g/cm2, Z-score 0.8, T-score -0.5, normal. Prior: BMD 0.970 g/cm2. Baseline: BMD 1.005 g/cm2. LEFT FEMUR, TOTAL: Current: BMD 1.055 g/cm2, Z-score 1.4, T-score 0.4, normal, 5.2% increase from previous, 2.0% decrease from baseline (<5% change is not significant). Prior: BMD 1.003 g/cm2. Baseline: BMD 1.076 g/cm2. AP SPINE L1-L2 (excluding L3 and L4): The data of L1-L4 has been changed to exclude the L3 and L4 vertebral bodies, because at these levels may cause overestimation of lumbar spine density. Current: BMD 1.125 g/cm2, Z-score 0.8, T-score -0.3, normal, 1.8% decrease from previous, 5.0% decrease from baseline (<5% change is not significant). Prior: BMD 1.146 g/cm2. Baseline: BMD 1.184 g/cm2. IDENTIFIED RISK FACTORS: Menopause, low calcium intake. HISTORY OF FRACTURE: None listed. MEDICATIONS: Multivitamin. MM/XR DEXA axial skeleton IMPRESSION: 1. DIAGNOSIS: Normal bone density based on the lowest T-score value of -0.5 in the femoral neck applying World Health Organization criteria. 2. 10-YEAR FRACTURE RISK PREDICTION, FRAX: According to the guidelines, FRAX calculation should only be performed on patients in the osteopenia bone density category. Therefore, FRAX was not performed on this patient. 3. Treatment Recommendations: NOF guidelines recommend consideration for treatment in postmenopausal women and men age 50 and older presenting with the following: -A hip or vertebral (clinical or morphometric) fracture. -T-score less than or equal to -2.5 at the femoral neck or spine after appropriate evaluation to exclude secondary causes. -Low bone mass at the hip or spine and a 10-year fracture probability by FRAX of greater than or equal to 3% for hip fracture or greater than or equal to 20% for major osteoporotic fracture based on the [place] adapted WHO algorithm. 4. Other Recommendations: All treatment decisions require clinical judgment and consideration of individual patient factors, including patient preferences, comorbidities, previous drug use, risk factors not captured in the FRAX model (e.g. frailty, falls, vitamin D deficiency, increased bone turnover, interval significant decline in bone density) and possible under or overestimation of fracture risk by FRAX. FUTURE SCAN RECOMMENDATION: People with diagnosed cases of osteoporosis or at high risk for fracture should have regular bone mineral density tests. For patients eligible for Medicare, routine testing is allowed once every 2 years. The testing frequency can be increased to one year for patients who have rapidly progressing disease, those who are receiving or discontinuing medical therapy to restore bone mass, or have additional risk factors. Electronically signed by: Emanuel Fuentes MD 08/12/2024 12:20 PM EDT
== END 2024-08-11 13:13 | disposition home or self-care (01) ==
LOC: HO.MAMMO 13:12
PROVIDERS: PCP Internal Medicine; Visit Provider Internal Medicine
DX: Z13.820 Encounter for screening for osteoporosis (principal); Z78.0 Asymptomatic menopausal state
CPT/HCPCS: 77080

== ENCOUNTER 2024-09-26 08:48 | Outpatient (AMB) | payer MEDICARE, OTHER, SELFPAY ==
[2024-09-26 09:02] VITALS: BP 130/78; BMI 27.4
--- NOTE | 2024-09-26 09:04 | AM.OFFVISMDC ---
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 Accompanied by: Self / Same As Patient Allergies lisinopril Allergy (Intermediate, Verified 09/26/24 09:26) loss of cosciousness metronidazole [From FLAGYL] Allergy (Intermediate, Verified 09/26/24 09:26) RASH tetracycline [Tetracycline] Allergy (Mild, Verified 09/26/24 09:26) RASH Medication List - Last Reconciled 09/26/24 by Edie Rucker MD gabapentin 800 mg PO BEDTIME 90 days metoprolol succinate ER 25 mg PO DAILY simvastatin 10 mg PO BEDTIME Ventolin HFA 90 mcg/actuation (albuterol sulfate) 2 puffs inhalation Q6H PRN 30 days NS HPI HPI Comments History of Present Illness Details This is a 69-year-old female that comes for her Medicare wellness exam. Ppp handed to patient. [place] of care was reviewed and updated. Mammogram done 2023 was normal. DEXA scan done 2023 was normal. Last colonoscopy was 2015 and next colonoscopy will be 2025. Last Pap smear was 2021 and was normal with HPV negative. Prevnar 20 done 2022 and Tdap done 2021. PFSH Medical History Breast mass Active asthma COVID-19 vaccine series completed Ganglion cyst of volar aspect of left wrist Ganglion cyst of dorsum of left wrist Bladder prolapse Left shoulder pain Right knee pain Neck pain Impaired glucose tolerance Onychogryposis Pure hypercholesterolemia Essential hypertension Surgical History History of colonoscopy History of surgical removal of ganglion cyst Hx of cervical discectomy Hx of total knee arthroplasty History of arthroscopic knee surgery History of laparoscopic cholecystectomy History of tubal ligation Family History Father CVD (cardiovascular disease) Stroke Mother Chronic mental illness Multiple myeloma Stroke Sister Automobile accident Family/Other Chronic mental illness Daughter In good health Daughter In good health Social History Housing: House Alcohol intake: former Patient Tobacco Use Status: Former Tobacco user Tobacco use type: Cigarette e-Cigarette/Vaping Use: Never Used Second Hand Smoke Exposure: No service: No Current occupational status: retired 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 Cognitive needs: No Hearing needs: No Vision needs: Yes Questionnaire Medicare Wellness Checkup [age] What gender do you identify with?: female During the past 4 weeks, how much have you been bothered by emotional problems such as feeling anxious, depressed, irritable, sad or downhearted, and blue?: not at all During the past 4 weeks, has your physical & emotional health limited your social activities with family, friends, neighbors, or groups?: not at all During the past 4 weeks, how much bodily pain have you generally had?: mild pain During the past 4 weeks, was someone available to help you if you needed & wanted help?: yes, as much as I wanted During the past 4 weeks, what was the hardest physical activity you could do for at least 2 minutes?: heavy Can you get to places out of walking distance without help? (For eg., can you travel alone on buses, taxis or drive your car?): Yes Can you go shopping for groceries or clothes without someone's help?: Yes Can you prepare your own meals?: Yes Can you do your housework without help?: Yes Because of any health problems, do you need the help of another person with your personal care needs such as eating, bathing, dressing or getting around the house?: No Can you handle your own money without help?: Yes During the past 4 weeks, how would you rate your health in general?: very good During the past 4 weeks how have things been going for you?: very well; could hardly better Are you having difficulties driving your car?: no Do you always fasten your seat belt when you are in a car?: yes, usually During past 4 weeks, have you been bothered by the following: never: Falling or dizzy when standing up, Sexual problems?, Trouble eating well?, Teeth or denture problems?, Problems using the telephone? and Tiredness or fatigue? Have you fallen 2 or more times in the past year?: No Are you afraid of falling?: No During the past 4 weeks, how many drinks of wine, beer, or other alcoholic beverages did you have?: no alcohol at all Do you exercise for about 20 minutes 3 or more times a week?: yes, most of the time Have you been given information to help with the following?: yes: Hazards in your house that might hurt you? and yes: Keeping track of your medications? How often do you have trouble taking medicines the way you have been told to take them?: I always take medicine as prescribed How confident are you that you can control & manage most of your health problems?: very confident What is your race?: White Mini Mental State Exam (MMSE) Orientation What is the (year) (season) (date) (day) (month)?: year, season, date, day and month Where are we (state) (county) (town or city) (hospital) (floor)?: state, county, town or city, hospital/clinic and floor Registration Name of 3 unrelated objects clearly and slowly, then ask patient to repeat all 3 of them. (1st repeat determines score. Make sure they can repeat all three): object 1, object 2 and object 3 Attention & Calculation (CHOOSE ONE) Spell WORLD backwards (DLROW): 5 letters Recall Ask patient to repeat the 3 items from question #3.: object 1, object 2 and object 3 Language Show patient a wristwatch & ask what it is. Repeat for pencil.: watch and pencil Ask the patient to repeat the phrase 'No ifs, ands, or buts' after you.: correct Ask the patient to 'take a piece of paper with their right hand' 'fold paper in half' 'place paper on floor': take paper in right hand, fold paper in half and place paper on floor Print the sentence 'CLOSE YOUR EYES' on a piece. If patient actually closes eyes then score.: followed written direction Give patient a blank piece of paper & ask to write a sentence. Score if it contains a noun & verb.: sentence contains subject and verb Ask patient to copy figure of intersecting pentagons exactly. Score if all 10 angles & 2 intersects are included.: all 10 angles present & 2 are intersected Score Score: 30 Activity of Daily Living Bathing - sponge bath, tub bath or shower: receives no assistance (gets in/out by self, if usual bathing means Dressing - getting clothes from closets & drawers, including inner/outer garments & fasteners.: gets clothes & gets completely dressed without help Transfer: moves in & out of bed and chair without help (may use support object) Continence: controls urination/bowel movements completely by self Feeding: feeds self without help Total Score: 0 Information obtained from: patient Using telephone: independent Traveling: independent Shopping: independent Preparing meals: independent Housework: independent Taking medicine: independent Managing money: independent PHQ-9 Over the last 2 weeks, how often have you been bothered by any of the following problems? 1. Little interest or pleasure in doing things: not at all 2. Feeling down, depressed, or hopeless: not at all 3. Trouble falling or staying asleep, or sleeping too much: not at all 4. Feeling tired or having little energy: not at all 5. Poor appetite or overeating: not at all 6. Feeling bad about yourself - or that you are a failure or have let yourself or your family down: not at all 7. Trouble concentrating on things, such as reading the newspaper or watching television: not at all 8. Moving or speaking so slowly that other people could have noticed. Or the opposite - being so fidgety or restless that you have been moving around a lot more than usual: not at all 9. Thoughts that you would be better off or of hurting yourself in some way: not at all Total score: 0 Depression Screening Interpretation: Negative Depression Screening Done: Yes 57268 - PHQ-9 Billing: Yes Source: Developed by Drs. Francisco Gold, Laquita Deleon, Jimmy Obrien and colleagues, with an educational rafael from [employer]. Fall Risk Assessment Fall Risk Assessment Fall risk assessment: No Falls in past year Thrive Questionnaire Date Thrive assessed: 09/26/24 I am a: Patient What is your living situation today?: I have a steady place to live Within the past 12 months, did the food you bought not last and you didn't have the money to get more?: Never true Within the past 12 months, did you worry whether your food would run out before you got money to buy more?: Never true Do you have trouble paying for medicines?: No Do you have trouble getting transportation to medical appointments?: No Do you have trouble paying your heating and electricity bill?: No Do you have trouble taking care of your child, family member or friend?: No Do you have trouble with day-to-day activities such as bathing, preparing meals, shopping, managing finances, etc.?: No Are you currently unemployed and looking for a job?: No Are you interested in more education?: No Please select the resources that you would like help with: None Currently or been in a relationship where the following occur: No concerns reported THRIVE Score: 0 AUDIT C Alcohol Use Questionnaire (AUDIT-C) 1. How often do you have a drink containing alcohol?: Never Total Score: 0 Score Reviewed/Action Taken: No LAKE-7 AMB Questionnaire LAKE-7 Date LAKE - 7 assessed: 09/26/24 Feeling nervous, anxious, or on edge: 0 = Not at all Not being able to stop or control worryin = Not at all Worrying too much about different things: 0 = Not at all Trouble relaxin = Not at all Being so restless that it is hard to sit still: 0 = Not at all Becoming easily annoyed or irritable: 0 = Not at all Feeling afraid as if something awful might happen: 0 = Not at all Total LAKE-7 score (0-4 normal; 5-9 mild; 10-14 moderate; 15-21 severe): 0 Source: Developed by Drs. Francisco Gold, Laquita Deleon, Jimmy Obrien and colleagues, with an educational rafael from [employer]. LAKE-7 Assessment Billing LAKE-7 Assessment Tool: LAKE-7 Assessment 93082 Review of Systems Const All systems reviewed & are unremarkable except as noted in HPI and below Card Denies chest pain at rest, Denies chest pain with activity, Denies edema, Denies irregular heart rhythm, Denies claudication, Denies dyspnea, Denies dyspnea on exertion, Denies orthopnea, Denies paroxysmal nocturnal dyspnea and Denies slow heart rate Resp Denies cough, Denies dyspnea and Denies dyspnea on exertion GI Denies abdominal pain, Denies change in bowel habits, Denies excessive flatus, Denies nausea and Denies vomiting Denies urinary incontinence, Denies urinary hesitancy and Denies urinary urgency Musc Denies abnormal gait, Denies atrophy, Denies deformity and Denies limited range of motion Skin/Breast Denies bleeding lesions, Denies changing lesions and Denies rash Neuro Denies abnormal gait, Denies behavioral changes, Denies confusion and Denies lack of coordination Psych Denies behavioral changes and Denies confusion Endo Denies cold intolerance Kan/Lymph Denies easy bleeding and Denies easy bruising Aller/Immun Denies urticaria Physical Exam Vital Signs: Last Vital Signs BP 130/78 09/26/24 09:02 BMI result Body Mass Index 27.4 Const General: cooperative; No confusion Orientation/consciousness: patient oriented x3 and No confusion Resp Effort & Inspection: normal respiratory effort Auscultation: clear to auscultation bilaterally Cardio Jugular venous distension: no JVD Rate: regular rate Rhythm: regular rhythm Heart sounds: S1 normal heart sound present and S2 normal heart sound present Neuro General: patient oriented x3, no focal motor deficits and No confusion Gait exam (Neuro): Normal gait present Romberg Test: Negative Extrem General: Yes full ROM Assessment & Plan Assessment & Plan (1) Encounter for Medicare annual wellness exam: Code(s): Z00.00 - Encounter for general adult medical examination without abnormal findings Plan: Patient declines to repeat Medicare annual wellness exam next year. Colonoscopy for 2025 Quality Reporting (2019) Fall Risk Screening ([facility] 139) Fall risk assessment: No Falls in past year Depression/Bipolar (159/160/161/177) PHQ-9: Total score: 0 Coding Level of Care Code Medicare Subsequent (G0439) Diagnoses Encounter for Medicare annual wellness exam Z00.00 Additional Codes LAKE-7 Assessment Billing - LAKE-7 Assessment Tool: LAKE-7 Assessment 63518 ([id number]) PHQ-9 - 26668 - PHQ-9 Billing: Yes ([id number]) Time Spent (min) 35 Advance Care Planning Advance Care Planning discussion: Exists, not on file Forms completed: Health Care Proxy
== END 2024-09-26 09:47 | disposition home or self-care (01) ==
PROVIDERS: PCP Internal Medicine; Visit Provider Internal Medicine
DX: Z00.00 Encounter for general adult medical examination without abnormal findings (principal)

== ENCOUNTER → 2024-09-26 08:48 | Outpatient (BNVA) | payer MEDICARE, OTHER, SELFPAY | PROVIDERS: PCP Internal Medicine; Visit Provider Internal Medicine | DX: Z00.00 Encounter for general adult medical examination without abnormal findings (principal); I10 Essential (primary) hypertension; Z87.891 Personal history of nicotine dependence | CPT/HCPCS: 96127 ==

== ENCOUNTER 2024-12-06 08:10 | Outpatient (AMB) | payer MEDICARE, OTHER, SELFPAY ==
--- NOTE | 2024-12-06 08:12 | A.OFFPC_ITS ---
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 Accompanied by: Self / Same As Patient Allergies lisinopril Allergy (Intermediate, Verified 12/06/24 08:19) loss of cosciousness metronidazole [From FLAGYL] Allergy (Intermediate, Verified 12/06/24 08:19) RASH tetracycline [Tetracycline] Allergy (Mild, Verified 12/06/24 08:19) RASH Medication List - Last Reconciled 12/06/24 by Edie Rucker MD gabapentin 800 mg PO BEDTIME 90 days metoprolol succinate ER 25 mg PO DAILY simvastatin 10 mg PO BEDTIME Ventolin HFA 90 mcg/actuation (albuterol sulfate) 2 puffs inhalation Q6H PRN 30 days NS Tobacco use date assessed: 12/06/24 Fall risk assessment: No Falls in past year Last assessed Fall Risk: 12/06/24 Dental Screening Dental Screen Date: 12/06/24 Did you have a dental visit in the last 12 months?: Yes Did you have a dental problem in the last 6 months where you did not have access to dental care?: No Was dental information given to patient?: Patient has dentist HPI HPI Comments History of Present Illness Details This is a 69-year-old female with hypertension, pure hypercholesterolemia, cervical radiculopathy and mild asthma that comes today for preop evaluation of cataract extraction and intraocular lens implant scheduled for tomorrow on the left eye and December 21 for the right eye. EKG and labs are still pending for medical clearance. Denies any chest pain or shortness on breath. Has 5-7 Mets of ADLs. This is a low risk surgery for a low risk patient. Blood pressure stable. On statins for elevated cholesterol. Cervical radiculopathy was evaluated by ortho and recommended Celebrex to be used as needed. She use rescue inhaler less than once a month for her mild asthma which has been stable. [facility] Medical History (Updated 12/06/24 @ 08:27 by Edie Rucker MD) Breast mass Active asthma COVID-19 vaccine series completed Ganglion cyst of volar aspect of left wrist Ganglion cyst of dorsum of left wrist Bladder prolapse Left shoulder pain Right knee pain Neck pain Impaired glucose tolerance Onychogryposis Pure hypercholesterolemia Essential hypertension Surgical History History of colonoscopy History of surgical removal of ganglion cyst Hx of cervical discectomy Hx of total knee arthroplasty History of arthroscopic knee surgery History of laparoscopic cholecystectomy History of tubal ligation Family History Father CVD (cardiovascular disease) Stroke Mother Chronic mental illness Multiple myeloma Stroke Sister Automobile accident Family/Other Chronic mental illness Daughter In good health Daughter In good health Social History Housing: House Alcohol intake: former Patient Tobacco Use Status: Former Tobacco user Tobacco use type: Cigarette e-Cigarette/Vaping Use: Never Used Second Hand Smoke Exposure: No service: No Current occupational status: retired 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 1. Little interest or pleasure in doing things: not at all 2. Feeling down, depressed, or hopeless: not at all 3. Trouble falling or staying asleep, or sleeping too much: not at all 4. Feeling tired or having little energy: not at all 5. Poor appetite or overeating: not at all 6. Feeling bad about yourself - or that you are a failure or have let yourself or your family down: not at all 7. Trouble concentrating on things, such as reading the newspaper or watching television: not at all 8. Moving or speaking so slowly that other people could have noticed. Or the opposite - being so fidgety or restless that you have been moving around a lot more than usual: not at all 9. Thoughts that you would be better off or of hurting yourself in some way: not at all Total score: 0 Depression Screening Interpretation: Negative Depression Screening Done: Yes 13963 - PHQ-9 Billing: Yes Source: Developed by Drs. Francisco Gold, Laquita Deleon, Jimmy Obrien and colleagues, with an educational rafael from [employer]. Thrive Questionnaire Date Thrive assessed: 12/06/24 I am a: Patient What is your living situation today?: I have a steady place to live Within the past 12 months, did the food you bought not last and you didn't have the money to get more?: Never true Within the past 12 months, did you worry whether your food would run out before you got money to buy more?: Never true Do you have trouble paying for medicines?: No Do you have trouble getting transportation to medical appointments?: No Do you have trouble paying your heating and electricity bill?: No Do you have trouble taking care of your child, family member or friend?: No Do you have trouble with day-to-day activities such as bathing, preparing meals, shopping, managing finances, etc.?: No Are you currently unemployed and looking for a job?: No Are you interested in more education?: No Please select the resources that you would like help with: None Currently or been in a relationship where the following occur: No concerns reported THRIVE Score: 0 AUDIT C Alcohol Use Questionnaire (AUDIT-C) 1. How often do you have a drink containing alcohol?: Never Total Score: 0 Score Reviewed/Action Taken: No LAKE-7 AMB Questionnaire LAKE-7 Date LAKE - 7 assessed: 12/06/24 Feeling nervous, anxious, or on edge: 0 = Not at all Not being able to stop or control worryin = Not at all Worrying too much about different things: 0 = Not at all Trouble relaxin = Not at all Being so restless that it is hard to sit still: 0 = Not at all Becoming easily annoyed or irritable: 0 = Not at all Feeling afraid as if something awful might happen: 0 = Not at all Total LAKE-7 score (0-4 normal; 5-9 mild; 10-14 moderate; 15-21 severe): 0 Source: Developed by Drs. Francisco Gold, Laquita Deleon, Jimmy Obrien and colleagues, with an educational rafael from [employer]. LAKE-7 Assessment Billing LAKE-7 Assessment Tool: LAKE-7 Assessment 35061 Review of Systems Const All systems reviewed & are unremarkable except as noted in HPI and below Card Denies chest pain at rest, Denies chest pain with activity, Denies edema, Denies irregular heart rhythm, Denies claudication, Denies dyspnea, Denies dyspnea on exertion, Denies orthopnea, Denies paroxysmal nocturnal dyspnea and Denies slow heart rate Resp Denies cough, Denies dyspnea and Denies dyspnea on exertion Physical exam (Primary Care) Vital Signs: Last Vital Signs BP 130/72 12/06/24 08:13 BMI result Body Mass Index 28.0 Tobacco/Smoking Status: Tobacco use Status Tobacco use date assessed 12/06/24 12/06/24 08:17 Patient Tobacco Use Status Former Tobacco user 12/06/24 08:17 Tobacco use type Cigarette 12/06/24 08:17 e-Cigarette/Vaping Use Never Used 12/06/24 08:17 PHQ-9: PHQ-9 Score PHQ-9: Total score 0 12/06/24 08:17 Depression Screening Interpretation: Negative Thrive Assessment: Date of Thrive Assessment Date Thrive assessed 12/06/24 12/06/24 08:17 Currently or been in a relationship where the following occur: No concerns reported Resp Effort & Inspection: normal respiratory effort Auscultation: clear to auscultation bilaterally Cardio Jugular venous distension: no JVD Rate: regular rate Rhythm: regular rhythm Heart sounds: S1 normal heart sound present and S2 normal heart sound present Extrem General: Yes full ROM Coding Level of Care Code Est Pt Level 4 (25386) Complex EM visit Add On G2211 Diagnoses Pre-op evaluation Z01.818 Cervical radiculopathy M54.12 Mild persistent asthma without complication J45.30 Asthma persistence: persistent Asthma complication type: uncomplicated Essential hypertension I10 Pure hypercholesterolemia E78.00 Additional Codes PHQ-9 - 33954 - PHQ-9 Billing: Yes ([id number]) LAKE-7 Assessment Billing - LAKE-7 Assessment Tool: LAKE-7 Assessment 74247 ([id number]) Time Spent (min) 23 Assessment & Plan Assessment & Plan (1) Pre-op evaluation: Code(s): Z01.818 - Encounter for other preprocedural examination Category: Medical Plan: Pending EKG and labs for medical clearance. (2) Cervical radiculopathy: Code(s): M54.12 - Radiculopathy, cervical region Category: Medical Plan: Start Celebrex as needed. (3) Mild asthma: Code(s): J45.909 - Unspecified asthma, uncomplicated Category: Medical Qualifiers: Asthma persistence: persistent Asthma complication type: uncomplicated Qualified Code(s): J45.30 - Mild persistent asthma, uncomplicated Plan: Use rescue inhaler as needed. (4) Essential hypertension: Code(s): I10 - Essential (primary) hypertension Category: Medical Plan: Continue metoprolol. Blood pressure goal is equal or less than 130/80. (5) Pure hypercholesterolemia: Code(s): E78.00 - Pure hypercholesterolemia, unspecified Category: Medical Plan: Continue statins. Orders: Orders ECG 12 lead EKG Today Z01.818 - Encounter for other preprocedural examination Complete Blood Count Auto Diff Today Z01.818 - Encounter for other preprocedural examination Comprehensive [place]. Panel Fast Today Z01.818 - Encounter for other preprocedural examination
[2024-12-06 08:13] VITALS: BP 130/72; BMI 28.0
--- OUTSIDE RECORDS SUMMARY | 2024-12-06 08:24 | XMS_ITS | Patient Health Record ---
Author Organization [facility] Address [address] [facility] [place] [address] Care Team Providers Care Integrity Consultant Name Role Phone Joao SMITH, Edie Primary Care Provider Unavail able Grant Siddiqi Unavailable [phone] Allergies Allergen (clinical drug ingredient) Drug/Non Drug Allergy documented on EMR Reaction Allergy Type Onset Date Status General/Spinal (uncoded) vomiting Allergy Active tetracycline Tetracycline (uncoded) Rash Allergy Active ibuprofen Advil Stomach pain Drug Allergy Acti ve Aleve Stomach pain Drug Allergy Acti ve sulfamethoxazole / trimethoprim Bactrim Unknown Drug Allergy Active metronidazole Flagyl rash Drug Allergy Act art lisinopril Lisinopril fainted Drug Allergy Activ e Motrin Stomach pain Drug Allergy Acti ve Adhesive rash Allergy Active Reason For Referral No Information Medications Medication SIG (Take, Route, Frequency, Duration) Notes Start Date End Date Status ZTE Active Keflex 500 MG 1 capsule Orally belia ry 12 hrs for 10 day(s) 02/16/2017 Not-Taking Cephalexin 500 MG 1 capsule Orally belia ry 6 hrs for 5 day(s) Not-Taking Gabapentin 600 MG 1 tablet Orally Once a day Active Metoprolol Succinate 25 MG 1 capsule Orally Once a day Active Melatonin 50MG Orally at night Active Mucinex 600 MG 1 tablet as needed Orally every 12 hrs Active Multivitamin & Mineral Active Simvastatin 10 MG 1 tablet in the even ing Orally Once a day Active Vitamin C 500 MG 1 tablet Orally Once a day Active Voltaren 1 % as directed Externally Active Immunizations Vaccine Route Administration Date Status Comme [facility] COVID-19 Moderna Vaccine Unknown 02/06/2021 Administere d 01/16/2021 #1 Social History Tobacco Use: Social History Observation Description Date Details (start date - stop date) Former Smoker NA - NA Tobacco Use/Smoking Question Answer Notes Are you a: former smoker Additional Findings: Tobacco Non-User Current no n-smoker Alcohol Screen Question Answer Notes Did you have a drink containing alcohol in the p ast year? No Points 0 Interpretation Negative Tobacco use other than smoking: Question Answer Notes Are you an other tobacco user? No Plan Of Treatment Pending Test Test Name Order Date X ray : Foot, left 3V 11/19/2020 X ray : Foot, right 3V 11/19/2020 [id number] I&D ABSCESS- SIMPLE,SINGLE 022 90715- I&D ABSCESS-COMPLICATED,MULTI 05/2017 Insurance Providers Payer Name Payer Address Payer Phone Subscriber Number Group Number Insured Name Patient Relationship to Insured Coverage Start Date Coverage End Date Medicare National Govt Svcs Inc [address] [place] [address] [id number] Marialuisa Cox Self - patient is the insured [facility] [address] [place] [address] [id number] Marialuisa Cox Self - patient is the insured Medical (General) History Medical History History ICD Code Arthritis asthma Back,Hip,and Knee pain Broken bones CAD (Cholesterol) Headaches Hepatitis A High blood pressure Chicken pox Sciatica Vascular phlebitis (clots) Measles Bone implants/screws Surgical History Surgery Date(Month/Year) tonsillectomy 1965 tubal ligation 1982 cholecystectomy 1993 Meniscectomy 2009 laminectomy- Vomiting after surgery right knee replacement- Vomiting 02/2017
== END 2024-12-06 08:30 | disposition home or self-care (01) ==
PROVIDERS: PCP Internal Medicine; Visit Provider Internal Medicine
DX: Z01.818 Encounter for other preprocedural examination (principal); M54.12 Radiculopathy, cervical region; J45.30 Mild persistent asthma, uncomplicated; I10 Essential (primary) hypertension; E78.00 Pure hypercholesterolemia, unspecified

== ENCOUNTER 2024-12-06 08:10 | Outpatient (REF) | payer MEDICARE, OTHER, SELFPAY ==
--- NOTE | 2024-12-06 08:37 | ECG_ITS ---
Test Reason : preop Blood Pressure : */* mmHG Vent. Rate : 58 BPM Atrial Rate : 58 BPM P-R Int : 154 ms QRS Dur : 80 ms QT Int : 424 ms P-R-T Axes : 26 32 57 degrees QTcB Int : 416 ms Sinus bradycardia Otherwise normal ECG No previous ECGs available Referred By: Edie Rucker Electronically Signed By: TIERRA PALMA
[2024-12-06 08:43] LABS: MANUAL DIFF FLAG NO
[2024-12-06 09:06] LABS: Basophils Absolute Auto 0.1 X10*3/uL (0.0-0.2); Basophils Percent Auto 0.7 % (0-2); Eosinophils Absolute Auto 0.3 X10*3/uL (0.0-0.4); Eosinophils Percent Auto 3.5 % (0-4); Hematocrit 41.6 % (37.0-47.0); Hemoglobin 13.5 g/dl (12.0-16.0); Imm Gran Abs Auto 0.01 X10*3/uL (0.00-0.03); Imm Gran Pct Auto 0.1 % (0.0-0.4); Lymphocytes Percent Auto 39.9 % (20-40); Mean Corpuscular HGB Conc 32.5 g/dl (31.0-35.0); Mean Corpuscular Hemoglobin 30.1 pg (27.0-33.0); Mean Corpuscular Volume 92.7 fL (80.0-98.0); Mean Platelet Volume 9.7 fL (9.4-12.3); Monocytes Absolute Auto 0.4 X10*3/uL (0.1-1.2); Monocytes Percent Auto 5.2 % (2-11); Neutrophils Absolute Auto 3.8 x10*3/uL (2.0-8.3); Neutrophils Percent Auto 50.6 % (45-73); Platelet Count 235 X10*3/uL (160-400); Red Blood Count 4.49 X10*6/uL (4.20-5.50); Red Cell Distribution Width 12.8 % (11.0-16.0); White Blood Count 7.5 X10*3/uL (4.8-10.8)
[2024-12-06 09:38] LABS: Alanine Aminotransferase 20 U/L (0-31); Albumin Level 4.3 g/dL (3.5-5.0); Alkaline Phosphatase 82 U/L (39-117); Anion Gap 12 (12-20); Aspartate Amino Transferase 26 U/L (5-31); Bilirubin Total 0.4 mg/dL (0.0-1.0); Blood Urea Nitrogen 11 mg/dL (9-16); Calcium 9.6 mg/dL (8.4-10.2); Carbon Dioxide 28 mmol/L (22-29); Chloride 106 mmol/L (96-108); Estimated Glomerular Filt Rate > 60; Glucose Fasting 85 mg/dL (60-99); Potassium 4.7 mmol/L (3.3-5.1); Sodium 141 mmol/L (135-145); Total Protein 7.3 g/dL (6.5-8.0)
== END 2024-12-06 08:11 | disposition home or self-care (01) ==
LOC: HO.LAB 08:10
PROVIDERS: PCP Internal Medicine; Visit Provider Internal Medicine
DX: Z01.818 Encounter for other preprocedural examination (principal); M54.12 Radiculopathy, cervical region; J45.30 Mild persistent asthma, uncomplicated; I10 Essential (primary) hypertension; E78.00 Pure hypercholesterolemia, unspecified
CPT/HCPCS: 36415; 80053; 85025; 93005; 96127; 99212

== ENCOUNTER → 2024-12-06 08:37 | Outpatient (BNV) | payer MEDICARE, OTHER, SELFPAY | PROVIDERS: PCP Internal Medicine; Visit Provider Internal Medicine | DX: R00.1 Bradycardia, unspecified (principal) | CPT/HCPCS: 93010 ==

== ENCOUNTER 2025-03-14 14:46 | Outpatient (AMB) | payer MEDICARE, OTHER, SELFPAY ==
--- NOTE | 2025-03-14 14:51 | MHC.PC.OV ---
Vital Signs 03/14/25 14:57 Height 5 ft 8 in Weight 186 lb 2 oz BMI 28.3 BP 124/72 Blood Pressure Location Rt brachial Position Sitting Respiration 14 Pulse 66 Pulse Source Pulse Oximeter Pulse Oximetry (%) 95 Oxygen Delivery Method Room Air Intake Visit Reasons: paige from [place] Intake Note: New patient visit Greenhouse Grower Required: No Allergies lisinopril Allergy (Intermediate, Verified 03/14/25 14:52) loss of cosciousness metronidazole [From FLAGYL] Allergy (Intermediate, Verified 03/14/25 14:52) RASH tetracycline [Tetracycline] Allergy (Mild, Verified 03/14/25 14:52) RASH Tobacco use date assessed: 12/06/24 Fall risk assessment: No Falls in past year Last assessed Fall Risk: 03/14/25 Dental Screening Dental Screen Date: 03/14/25 Did you have a dental visit in the last 12 months?: Yes Did you have a dental problem in the last 6 months where you did not have access to dental care?: No Was dental information given to patient?: Patient has dentist HPI HPI Comments History of Present Illness Details This is a 69-year-old female with hypertension, hld, cervical radiculopathy, mild asthma, cataracts presenting for follow up CV: on metoprolol, simvastatin. 124/72. Remote cardiac work up with PVCs. Was on lisinopril-had an episode of syncope. MSK: -Neck pain is stable. Previously referred to [facility] -s/p [facility] [place] Follow[place] with [facility]-had skin check today Recent cataract surgery. Mammogram 01/2024 Colonoscopy 2016-10 years ROS CONSTITUTIONAL: Denies weight loss, fever and chills. HEENT: Denies changes in vision and hearing. RESPIRATORY: Denies SOB and cough. CV: Denies palpitations and CP GI: Denies abdominal pain, nausea, vomiting and diarrhea. : Denies dysuria and urinary frequency. MSK: Denies new myalgia and joint pain. SKIN: Denies rash and pruritus. NEUROLOGICAL: Denies headache PSYCHIATRIC: Denies recent changes in mood. PHYSICAL EXAM: GENERAL: Alert and oriented x 3. NAD EYES: EOMI. Anicteric. HENT: Moist mucous membranes. No scleral icterus. No cervical lymphadenopathy. LUNGS: Clear to auscultation bilaterally. CARDIOVASCULAR: Regular rate and rhythm. No murmur ABDOMEN: Soft, non-tender EXTREMITIES: No edema. Non-tender. SKIN: No rashes or lesions. Warm. NEUROLOGIC: No focal neurological deficits. CN II-XII grossly intact PSYCHIATRIC: Cooperative. Appropriate mood and affect [facility] Medical History Breast mass Active asthma COVID-19 vaccine series completed Ganglion cyst of volar aspect of left wrist Ganglion cyst of dorsum of left wrist Bladder prolapse Left shoulder pain Right knee pain Neck pain Impaired glucose tolerance Onychogryposis Pure hypercholesterolemia Essential hypertension Surgical History History of carpal tunnel surgery of right wrist History of colonoscopy History of surgical removal of ganglion cyst Hx of cervical discectomy Hx of total knee arthroplasty History of arthroscopic knee surgery History of laparoscopic cholecystectomy History of tubal ligation Family History Father CVD (cardiovascular disease) Stroke Mother Chronic mental illness Multiple myeloma Stroke Sister Automobile accident Family/Other Chronic mental illness Daughter In good health Daughter In good health Social History Housing: House Alcohol intake: former Patient Tobacco Use Status: Former Tobacco user Tobacco use type: Cigarette e-Cigarette/Vaping Use: Never Used Second Hand Smoke Exposure: No service: No Current occupational status: retired 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 1. Little interest or pleasure in doing things: not at all 2. Feeling down, depressed, or hopeless: not at all 3. Trouble falling or staying asleep, or sleeping too much: not at all 4. Feeling tired or having little energy: not at all 5. Poor appetite or overeating: not at all 6. Feeling bad about yourself - or that you are a failure or have let yourself or your family down: not at all 7. Trouble concentrating on things, such as reading the newspaper or watching television: not at all 8. Moving or speaking so slowly that other people could have noticed. Or the opposite - being so fidgety or restless that you have been moving around a lot more than usual: not at all 9. Thoughts that you would be better off or of hurting yourself in some way: not at all Total score: 0 Depression Screening Interpretation: Negative Depression Screening Done: Yes 00482 - PHQ-9 Billing: Yes Source: Developed by Drs. Francisco Gold, Laquita Deleon, Jimmy Obrien and colleagues, with an educational rafael from [employer]. Thrive Questionnaire Date Thrive assessed: 03/08/25 I am a: Patient What is your living situation today?: I have a steady place to live Within the past 12 months, did the food you bought not last and you didn't have the money to get more?: Never true Within the past 12 months, did you worry whether your food would run out before you got money to buy more?: Never true Do you have trouble paying for medicines?: No Do you have trouble getting transportation to medical appointments?: No Do you have trouble paying your heating and electricity bill?: No Do you have trouble taking care of your child, family member or friend?: No Do you have trouble with day-to-day activities such as bathing, preparing meals, shopping, managing finances, etc.?: No Are you currently unemployed and looking for a job?: No Are you interested in more education?: No Please select the resources that you would like help with: None Currently or been in a relationship where the following occur: No concerns reported THRIVE Score: 0 AUDIT C Alcohol Use Questionnaire (AUDIT-C) 1. How often do you have a drink containing alcohol?: Never Total Score: 0 LAKE-7 AMB Questionnaire LAKE-7 Date LAKE - 7 assessed: 12/06/24 Feeling nervous, anxious, or on edge: 0 = Not at all Not being able to stop or control worryin = Not at all Worrying too much about different things: 0 = Not at all Trouble relaxin = Not at all Being so restless that it is hard to sit still: 0 = Not at all Becoming easily annoyed or irritable: 0 = Not at all Feeling afraid as if something awful might happen: 0 = Not at all Total LAKE-7 score (0-4 normal; 5-9 mild; 10-14 moderate; 15-21 severe): 0 Source: Developed by Drs. Francisco Gold, Laquita Deleon, Jimmy Obrien and colleagues, with an educational rafael from [employer]. Physical exam (Primary Care) Vital Signs: Last Vital Signs Pulse 66 03/14/25 14:57 Resp 14 03/14/25 14:57 BP 124/72 03/14/25 14:57 Pulse Ox 95 03/14/25 14:57 Oxygen Delivery Method Room Air 03/14/25 14:57 BMI result Body Mass Index 28.3 Tobacco/Smoking Status: Tobacco use Status Tobacco use date assessed 12/06/24 03/14/25 14:53 Patient Tobacco Use Status Former Tobacco user 03/14/25 14:53 Tobacco use type Cigarette 03/14/25 14:53 e-Cigarette/Vaping Use Never Used 03/14/25 14:53 PHQ-9: PHQ-9 Score PHQ-9: Total score 0 03/14/25 14:53 Depression Screening Interpretation: Negative Thrive Assessment: Date of Thrive Assessment Date Thrive assessed 03/08/25 03/14/25 14:53 Currently or been in a relationship where the following occur: No concerns reported Coding Level of Care Code Est Pt Level 4 (29918) Diagnoses Mild persistent asthma without complication J45.30 Asthma persistence: persistent Asthma complication type: uncomplicated Impaired glucose tolerance R73.02 Pure hypercholesterolemia E78.00 Essential hypertension I10 Additional Codes PHQ-9 - 75357 - PHQ-9 Billing: Yes ([id number]) Assessment & Plan Assessment & Plan (1) Mild asthma: Code(s): J45.909 - Unspecified asthma, uncomplicated Category: Medical Qualifiers: Asthma persistence: persistent Asthma complication type: uncomplicated Qualified Code(s): J45.30 - Mild persistent asthma, uncomplicated (2) Impaired glucose tolerance: Code(s): R73.02 - Impaired glucose tolerance (oral) Category: Medical (3) Pure hypercholesterolemia: Code(s): E78.00 - Pure hypercholesterolemia, unspecified Category: Medical (4) Essential hypertension: Code(s): I10 - Essential (primary) hypertension Category: Medical Plan 69 to establish care past medical, surgical social reviewed BP, PVCs well controlled on toprol. HLD-stable on statin Labs six months Orders: Orders Lipid Panel 6 Months E78.00 - Pure hypercholesterolemia, unspecified, I10 - Essential (primary) hypertension, R73.02 - Impaired glucose tolerance (oral), Z13.0 - Encounter for screening for diseases of the blood and blood-forming organs and certain disorders involving the immune mechanism Complete Blood Count Auto Diff 6 Months E78.00 - Pure hypercholesterolemia, unspecified, I10 - Essential (primary) hypertension, R73.02 - Impaired glucose tolerance (oral), Z13.0 - Encounter for screening for diseases of the blood and blood-forming organs and certain disorders involving the immune mechanism Comprehensive Met. Panel 6 Months E78.00 - Pure hypercholesterolemia, unspecified, I10 - Essential (primary) hypertension, R73.02 - Impaired glucose tolerance (oral), Z13.0 - Encounter for screening for diseases of the blood and blood-forming organs and certain disorders involving the immune mechanism Hemoglobin A1c 6 Months E78.00 - Pure hypercholesterolemia, unspecified, I10 - Essential (primary) hypertension, R73.02 - Impaired glucose tolerance (oral), Z13.0 - Encounter for screening for diseases of the blood and blood-forming organs and certain disorders involving the immune mechanism
[2025-03-14 14:57] VITALS: BP 124/72; PULSE 66; RESP 14; O2SAT 95; BMI 28.3
--- OUTSIDE RECORDS SUMMARY | 2025-03-14 16:30 | XMS_ITS | Patient Health Record ---
Author Organization [facility] Address [address] [facility] [place] [address] Care Team Providers Care Production Underwriter Name Role Phone Joao SMITH, Edie Primary Care Provider Unavail able Grant Siddiqi Unavailable [phone] Allergies Allergen (clinical drug ingredient) Drug/Non Drug Allergy documented on EMR Reaction Allergy Type Onset Date Status General/Spinal (uncoded) vomiting Allergy Active tetracycline Tetracycline (uncoded) Rash Allergy Active ibuprofen Advil Stomach pain Drug Allergy Acti ve Aleve Stomach pain Drug Allergy Acti ve sulfamethoxazole / trimethoprim Bactrim Unknown Drug Allergy Active metronidazole Flagyl rash Drug Allergy Act art Lisinopril fainted Drug Allergy Active Motrin Stomach pain Drug Allergy Acti ve Adhesive rash Allergy Active Reason For Referral No Information Medications Medication SIG (Take, Route, Frequency, Duration) Notes Start Date End Date Status ZyrTEC Active Keflex 500 MG 1 capsule Orally [...] Immunizations Vaccine Route Administration Date Status Comme nts COVID-19 Moderna Vaccine Unknown 02/06/2021 Administere d [...] X ray : Foot, right 3V 11/19/2020 71873 I&D ABSCESS- SIMPLE,SINGLE 022 82736- I&D ABSCESS-COMPLICATED,MULTI 05/2017 Insurance Providers Payer Name Payer Address Payer Phone Subscriber Number Group Number Insured Name Patient Relationship to Insured Coverage Start Date Coverage End Date Medicare National Govt Svcs Inc [address] [place] [address] [id number] Marialuisa Cox Self - patient is the insured [facility] [address] [place] [address] [phone] [id number] Marialuisa Cox Self - patient is [...]
== END 2025-03-14 15:24 | disposition home or self-care (01) ==
LOC: HO.HMCFM 14:47
PROVIDERS: PCP Internal Medicine; Visit Provider Internal Medicine
DX: J45.30 Mild persistent asthma, uncomplicated (principal); R73.02 Impaired glucose tolerance (oral); E78.00 Pure hypercholesterolemia, unspecified; I10 Essential (primary) hypertension

== ENCOUNTER → 2025-03-14 14:46 | Outpatient (BNVA) | payer MEDICARE, OTHER, SELFPAY | PROVIDERS: PCP Internal Medicine; Visit Provider Internal Medicine | DX: I10 Essential (primary) hypertension (principal); E78.5 Hyperlipidemia, unspecified; M54.12 Radiculopathy, cervical region; J45.30 Mild persistent asthma, uncomplicated; R73.02 Impaired glucose tolerance (oral); E78.00 Pure hypercholesterolemia, unspecified | CPT/HCPCS: 96127; 99212 ==

== ENCOUNTER 2025-06-05 09:11 | Outpatient (AMB) | payer MEDICARE, OTHER, SELFPAY ==
--- OUTSIDE RECORDS SUMMARY | 2025-06-05 09:54 | XMS_ITS | Clinical Summary ---
Author Organization [facility] Address [address] [place] [address] Phone Care Team Providers Care Ornament Stitcher Name Role Phone Edie Ricardo MD Primary Care Provid er Allergies Active Allergy Reactions Criticality Noted Date Comments Metronidazole Rash Low 12/17/2017 Tetracyclines Rash Low 12/17/2017 Medications simvastatin (ZOCOR) 10 MG tablet Take 10 mg by mouth nightly. Active METOPROLOL TARTRATE 12.5 MG PO SPLIT TABLET (LOPRESSOR) Take 25 mg by mouth 2 (two) times a day. Active MULTIVITAMIN ORAL Take by mouth. Active cetirizine (ZYRTEC) 10 MG tablet Take 10 mg by mouth daily. Active ascorbic acid, vitamin C, (VITAMIN C) 1000 MG tablet Take 1,000 mg by mouth daily. Active Active Problems Problem Noted Date Diagnosed Date Cellulitis of right lower extremity 12/17/2017 Overview (12/17/2017): Lesion biopsy site Assessment & Plan (12/17/2017 4:32 PM EST): The patient has some cellulitis at the biopsy site and antibiotics will be prescribed. She will call when she is ready for wide excision in OPD. Hypertension Assessment & Plan (12/17/2017 4:30 PM EST): The patient's hypertension may affect the presenting issue of surgical procedure (s) and may increase the risk of slow healing wound (s), infection (s), kidney, lung and/or heart problems. Stable and/or controlled chronic conditions may reduce complications associated with your chronic condition (s). Resolved Problems Problem Noted Date Diagnosed Date Resolved Date Atypical pigmented lesion 12/17/2017 Overview (12/17/2017): Mole with atypia on bx, right thigh. Assessment & Plan (12/17/2017 4:29 PM EST): Plan is for removal of an atypical mole. I explained the risks and benefits of lesion removal including but not limited to the risks of infection, bleeding, recurrence, bruising, need for further surgery, and scar. The patient understands those risks and wishes to proceed. She has some cellulitis at the biopsy site and antibiotics will be prescribed. She will call when she is ready for wide excision in OPD. Family History Medical History Relation Comments Heart attack Father Stroke Father x 3 Multiple myeloma Mother Relation Status Comments Father Mother Social History Tobacco Use Types Packs/Day Years Used Date Smoking Tobacco: Former Cigarettes 0.5 15 1 5 1989 Smokeless Tobacco: Never Alcohol Use Standard Drinks/Week Comments Yes 0 (1 standard drink = 0.6 oz pur e alcohol) occasional beer Education Answer Date Recorded Are you interested in more education? Not on franklin e 02/06/2023 Are you concerned about learning? Not on file 02/06/2023 No 02/06/2023 No 02/06/2023 Digital Access Answer Date Recorded No 03/07/2023 No 03/07/2023 Reliable internet access at home? Not on file 03/07/2023 Device with a working camera? Not on file Comments Unknown Sex and Gender Information Value Date Recorded Sex Assigned at Not on file Legal Sex Female 9:54 PM EDT Gender Identity Not on file Sexual Orientation Not on file Last Filed Vital Signs Vital Sign Reading Time Taken Comments Blood Pressure 110/60 02/12/2018 3:58 PM EDT Pulse 74 02/12/2018 3:58 PM EDT Temperature 36.1 C (97 F) 02/12/2018 3:58 PM EDT Respiratory Rate - - Oxygen Saturation 99% 02/12/2018 3:59 PM EDT Inhaled Oxygen Concentration - - Weight 86.2 kg (190 lb) 02/12/2018 3:58 PM EDT Height 171.5 cm (5' 7.5 ) 02/12/2018 3:58 PM EDT Body Mass Index 29.32 02/12/2018 3:58 PM EDT Plan of Treatment Health Maintenance Due Date Last Done Comments BLOOD PRESSURE 1956 LIPID PANEL 1956 DEPRESSION SCREENING 1968 SMOKING Hx and SMOKELESS TOB ACCO SCREENING 02/23/1969 HEPATITIS C SCREENING 02/23/1974 MAMMOGRAM 1996 COLOGUARD 02/23/2001 COLONOSCOPY 02/23/2001 COLORECTAL CANCER SCREENING 02/23/2001 FIT TEST 02/23/2001 FOBT 02/23/2001 SIGMOIDOSCOPY 02/23/2001 VIRTUAL COLONOSCOPY 02/23/2001 PNEUMOCOCCAL VACCINES (50+ y ears) (2 of 2 - PCV) 07/27/2015 07/27/2014 ZOSTER VACCINES (2 of 3) 12/29/2016 11/03/2016 OSTEOPOROSIS SCREENING INITI AL (ONE-TIME) 02/23/2021 COVID-19 VACCINE (2 - 2023-2 5 season) 2024 01/09/2021 Adult Td,Tdap Booster 07/27/2024 07/27/2014 RSV VACCINE (1 - 1-dose 75+ series) 02/23/2031 HEPATITIS A VACCINES Aged Out No long er eligible based on patient's age to complete this topic HIB VACCINES Aged Out No longer eligi ble based on patient's age to complete this topic MENINGOCOCCAL VACCINES (ACWY) Aged Out No longer eligible based on patient's age to complete this topic MENINGOCOCCAL VACCINES (B) Aged Out N o longer eligible based on patient's age to complete this topic Medical Devices Not on file Insurance [facility] Care Teams Ornament Stitcher Relationship Specialty Start Date End Date Edie Ricardo MD [address] [place] [address] PCP - General Internal Medicine 02/12/18 Additional Source Comments The information contained in this document represents components of the legal health record. It is not the complete legal health record.[facility]
== END 2025-06-05 14:24 | disposition home or self-care (01) ==
LOC: HO.HMGAL 09:11
PROVIDERS: PCP Internal Medicine; Visit Provider Registered Nurse Emergency
DX: J30.89 Other allergic rhinitis (principal)
CPT/HCPCS: 95117; 95165

== ENCOUNTER 2025-07-03 14:09 | Outpatient (AMB) | payer MEDICARE, OTHER, SELFPAY | END 2025-07-03 14:11 | disposition home or self-care (01) | LOC: HO.HMGAL 14:09 | PROVIDERS: PCP Internal Medicine; Visit Provider Registered Nurse Emergency | DX: J30.89 Other allergic rhinitis (principal) | CPT/HCPCS: 95117; 95165 ==

== ENCOUNTER 2025-08-07 09:13 | Outpatient (AMB) | payer MEDICARE, OTHER, SELFPAY ==
--- OUTSIDE RECORDS SUMMARY | 2025-08-07 10:04 | XMS_ITS | Clinical Summary ---
Author Organization [facility] Address [address] [place] [address] Phone Care Team Providers Care Supervisor Data Processing Name Role Phone Edie Ricardo MD Primary [...] DEPRESSION SCREENING 1968 SMOKING Hx and SMOKELESS TOBACCO SCREENING 02/23/1969 HEPATITIS C SCREENING 02/23/1974 MAMMOGRAM 1996 COLOGUARD 02/23/2001 COLONOSCOPY 02/23/2001 COLORECTAL CANCER SCREENING 02/23/2001 FIT TEST 02/23/2001 FOBT 02/23/2001 SIGMOIDOSCOPY 02/23/2001 VIRTUAL COLONOSCOPY 02/23/2001 PNEUMOCOCCAL VACCINES (50+ years) (2 of 2 - PCV) 07/27/2015 07/27/2014 ZOSTER VACCINES (2 of 3) 12/29/2016 11/03/2016 OSTEOPOROSIS SCREENING INITIAL (ONE-TIME) 02/23/2021 Adult Td,Tdap Booster 07/27/2024 07/27/2014 INFLUENZA VACCINE (#1) 2025 9, 07/08/2019, 07/19/2018, Additional history exists COVID-19 VACCINE (2 - 2024- season) 2025 01/09/2021 RSV VACCINE (1 - 1-dose 75+ series) [...] topic Medical Devices Not on file Insurance [facility] [address] [place] [address] HMO Care Teams Supervisor Data Processing Relationship Specialty Start Date End Date Edie Ricardo MD [address] [place] [address] PCP - General Internal Medicine 02/12/18 Additional Source Comments The information contained in this document represents components of the legal health record. It is not the complete legal health record.[facility]
== END 2025-08-07 09:14 | disposition home or self-care (01) ==
LOC: HO.HMGAL 09:13
PROVIDERS: PCP Internal Medicine; Visit Provider Registered Nurse Emergency
DX: J30.89 Other allergic rhinitis (principal)
CPT/HCPCS: 95117; 95165

== ENCOUNTER 2025-09-04 09:08 | Outpatient (AMB) | payer MEDICARE, OTHER, SELFPAY | END 2025-09-04 09:08 | disposition home or self-care (01) | LOC: HO.HMGAL 09:08 | PROVIDERS: PCP Internal Medicine; Visit Provider Registered Nurse Emergency | DX: J30.89 Other allergic rhinitis (principal) | CPT/HCPCS: 95117; 95165 ==

== ENCOUNTER 2025-09-14 07:24 | Outpatient (REF) | payer MEDICARE, OTHER, SELFPAY ==
--- OUTSIDE RECORDS SUMMARY | 2025-09-14 07:27 | XMS_ITS | Clinical Summary ---
Author Organization [facility] Address [address] [place] [address] Phone Care Team Providers Care Basket Hand Braider Name Role Phone Edie Ricardo MD Primary [...] topic Medical Devices Not on file Insurance [facility] [address] [place] [address] Address: [address] [address] Care Teams Basket Hand Braider Relationship Specialty Start Date End Date Edie Ricardo MD [address] [place] [address] PCP - General Internal Medicine 02/12/18 Additional Source Comments The information contained in this document represents components of the legal health record. It is not the complete legal health record.[facility]
[2025-09-14 07:38] LABS: MANUAL DIFF FLAG NO
[2025-09-14 08:03] LABS: Hematocrit 41.0 % (37.0-47.0); Hemoglobin 13.6 g/dl (12.0-16.0); Imm Gran Abs Auto 0.01 X10*3/uL (0.00-0.03); Imm Gran Pct Auto 0.2 % (0.0-0.4); Lymphocytes Absolute Auto 2.7 X10*3/uL (1.2-4.9); Mean Corpuscular HGB Conc 33.2 g/dl (31.0-35.0); Mean Corpuscular Hemoglobin 29.9 pg (27.0-33.0); Mean Corpuscular Volume 90.1 fL (80.0-98.0); NRBC Abs Auto 0.000 X10*3/uL (0.0-0.012); NRBC Pct Auto 0.0 /100WBC (0.0-0.2); Platelet Count 214 X10*3/uL (160-400); Red Blood Count 4.55 X10*6/uL (4.20-5.50); White Blood Count 6.2 X10*3/uL (4.8-10.8)
[2025-09-14 08:23] LABS: Alanine Aminotransferase 26 U/L (0-31); Albumin Level 4.5 g/dL (3.5-5.0); Alkaline Phosphatase 73 U/L (39-117); Anion Gap 11 (12-20); Aspartate Amino Transferase 31 U/L (5-31); Blood Urea Nitrogen 8 mg/dL (9-16); Calcium 9.0 mg/dL (8.4-10.2); Carbon Dioxide 27 mmol/L (22-29); Chloride 108 mmol/L (96-108); Cholesterol 192 mg/dL (<200); Estimated Glomerular Filt Rate > 60; HDL Cholesterol 77 mg/dL (>40); Potassium 4.3 mmol/L (3.3-5.1); Sodium 142 mmol/L (135-145); Total Protein 6.8 g/dL (6.5-8.0); Triglycerides 94 mg/dL (<150)
== END 2025-09-14 07:25 | disposition home or self-care (01) ==
LOC: HO.LAB 07:24
PROVIDERS: PCP Internal Medicine; Visit Provider Internal Medicine
DX: Z13.0 Encounter for screening for diseases of the blood and blood-forming organs and certain disorders involving the immune mechanism (principal); R73.02 Impaired glucose tolerance (oral); E78.00 Pure hypercholesterolemia, unspecified; I10 Essential (primary) hypertension
CPT/HCPCS: 36415; 80053; 80061; 83036; 85025

== ENCOUNTER 2025-09-18 09:07 | Outpatient (AMB) | payer MEDICARE, OTHER, SELFPAY ==
[2025-09-18 09:19] VITALS: BP 118/74; PULSE 54; RESP 14; O2SAT 96; BMI 28.5
--- NOTE | 2025-09-18 09:19 | A.OFFPC_ITS ---
Vital Signs 09/18/25 09:19 Height 5 ft 8 in Weight 187 lb 4 oz BMI 28.5 BP 118/74 Blood Pressure Location Rt brachial Position Sitting Respiration 14 Pulse 54 Pulse Source Pulse Oximeter Pulse Oximetry (%) 96 Oxygen Delivery Method Room Air Intake Visit Reasons: 6 Months Intake Note: Six month follow up. 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 124/72. Remote cardiac work up with PVCs. Was on lisinopril-had an episode of syncope. MSK: -Neck pain is stable. Previously referre d to [facility] -s/p [facility] by [facility]ics[place] [place]She has multiple joint aches, pain. Chidi ateral feet, legs, shoulder. Continues on gabapentin Follows with [facility] History of cataract surgery. Mammogram 01/2024, notes completed in 2024. DXA 2023 Colonoscopy 2016-10 years ROS see HPI PHYSICAL EXAM: GENERAL: Alert and oriented x 3. NAD EYES: EOMI. Anicteric. HENT: Moist mucous membranes. No scleral icterus. No cervical lymphadenopathy. LUNGS: Clear to auscultation bilaterally. CARDIOVASCULAR: Regular rate and rhythm. No murmur ABDOMEN: Soft, non-tender EXTREMITIES: No edema. Non-tender. SKIN: No rashes or lesions. Warm. NEUROLOGIC: No focal neurological deficits. CN II-XII grossly intact PSYCHIATRIC: Cooperative. Appropriate mood and affect [facility] Medical History Breast mass Active asthma COVID-19 vaccine series completed Ganglion cyst of volar aspect of left wrist Ganglion cyst of dorsum of left wrist Bladder prolapse Left shoulder pain Right knee pain Neck pain Impaired glucose tolerance Onychogryposis Pure hypercholesterolemia Essential hypertension Surgical History History of carpal tunnel surgery of right wrist History of colonoscopy History of surgical removal of ganglion cyst Hx of cervical discectomy Hx of total knee arthroplasty History of arthroscopic knee surgery History of laparoscopic cholecystectomy History of tubal ligation Family History Father CVD (cardiovascular disease) Stroke Mother Chronic mental illness Multiple myeloma Stroke Sister Automobile accident Family/Other Chronic mental illness Daughter In good health Daughter In good health Social History Housing: House Alcohol intake: former Patient Tobacco Use Status: Former Tobacco user Tobacco use type: Cigarette e-Cigarette/Vaping Use: Never Used Second Hand Smoke Exposure: No Use of substances other than those prescribed or required for medical reasons: No service: No Current occupational status: retired 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 Cognitive needs: No Hearing needs: No Vision needs: Yes Questionnaire Thrive Questionnaire Date Thrive assessed: 03/08/25 I am a: Patient What is your living situation today?: I have a steady place to live Within the past 12 months, did the food you bought not last and you didn't have the money to get more?: Never true Within the past 12 months, did you worry whether your food would run out before you got money to buy more?: Never true Do you have trouble paying for medicines?: No Do you have trouble getting transportation to medical appointments?: No Do you have trouble paying your heating and electricity bill?: No Do you have trouble taking care of your child, family member or friend?: No Do you have trouble with day-to-day activities such as bathing, preparing meals, shopping, managing finances, etc.?: No Are you currently unemployed and looking for a job?: No Are you interested in more education?: No Please select the resources that you would like help with: None Currently or been in a relationship where the following occur: No concerns reported THRIVE Score: 0 AUDIT C Alcohol Use Questionnaire (AUDIT-C) 1. How often do you have a drink containing alcohol?: Never 3. How often do you have six or more drinks on one occasion?: Never Total Score: 0 LAKE-7 AMB Questionnaire LAKE-7 Date LAKE - 7 assessed: 12/06/24 Source: Developed by Drs. Francisco Gold, Laquita Deleon, Jimmy Obrien and colleagues, with an educational rafael from [employer]. Physical exam (Primary Care) Vital Signs: Last Vital Signs Pulse 54 09/18/25 09:19 Resp 14 09/18/25 09:19 BP 118/74 09/18/25 09:19 Pulse Ox 96 09/18/25 09:19 Oxygen Delivery Method Room Air 09/18/25 09:19 BMI result Body Mass Index 28.5 Tobacco/Smoking Status: Tobacco use Status Tobacco use date assessed 09/18/25 09/18/25 09:25 Patient Tobacco Use Status Former Tobacco user 09/18/25 09:21 Tobacco use type Cigarette 09/18/25 09:21 e-Cigarette/Vaping Use Never Used 09/18/25 09:21 Thrive Assessment: Date of Thrive Assessment Date Thrive assessed 03/08/25 09/18/25 09:21 Currently or been in a relationship where the following occur: No concerns reported Coding Level of Care Code Complex visit Add On G2211 Diagnoses Essential hypertension I10 Pure hypercholesterolemia E78.00 Excessive sweating R61 Polyarthralgia M25.50 Bilateral foot pain M79.671; M79.672 Assessment & Plan Assessment & Plan (1) Essential hypertension: Code(s): I10 - Essential (primary) hypertension Category: Medical (2) Pure hypercholesterolemia: Code(s): E78.00 - Pure hypercholesterolemia, unspecified Category: Medical (3) Excessive sweating: Code(s): R61 - Generalized hyperhidrosis Category: Medical (4) Polyarthralgia: Code(s): M25.50 - Pain in unspecified joint Category: Medical (5) Bilateral foot pain: Code(s): M79.671 - Pain in right foot; M79.672 - Pain in left foot Category: Medical Plan 70 year old for follow up Interval history reviewed Polyarthralgia-labs ordered. Rheumatology referral. Foot pain-refer ortho HTN is stable on metoprolol Hyperhidrosis-check tsh, iron Orders: Orders Pathologist Review - CBC 6 Months E78.00 - Pure hypercholesterolemia, unspecified, I10 - Essential (primary) hypertension, M25.50 - Pain in unspecified joint, M54.2 - Cervicalgia, R73.02 - Impaired glucose tolerance (oral), R79.89 - Other specified abnormal findings of blood chemistry Complete Blood Count Auto Diff 6 Months E78.00 - Pure hypercholesterolemia, unspecified, I10 - Essential (primary) hypertension, M25.50 - Pain in unspecified joint, M54.2 - Cervicalgia, R73.02 - Impaired glucose tolerance (oral), R79.89 - Other specified abnormal findings of blood chemistry Lipid Panel 6 Months E78.00 - Pure hypercholesterolemia, unspecified, I10 - Essential (primary) hypertension, M25.50 - Pain in unspecified joint, M54.2 - Cervicalgia, R73.02 - Impaired glucose tolerance (oral), R79.89 - Other specified abnormal findings of blood chemistry Rheumatoid Factor 6 Months E78.00 - Pure hypercholesterolemia, unspecified, I10 - Essential (primary) hypertension, M25.50 - Pain in unspecified joint, M54.2 - Cervicalgia, R73.02 - Impaired glucose tolerance (oral), R79.89 - Other specified abnormal findings of blood chemistry Erythrocyte Sedimentation Rate 6 Months E78.00 - Pure hypercholesterolemia, unspecified, I10 - Essential (primary) hypertension, M25.50 - Pain in unspecified joint, M54.2 - Cervicalgia, R73.02 - Impaired glucose tolerance (oral), R79.89 - Other specified abnormal findings of blood chemistry TSH reflex Free T4 Today R61 - Generalized hyperhidrosis Comprehensive Met. Panel 6 Months E78.00 - Pure hypercholesterolemia, unspecified, I10 - Essential (primary) hypertension, M25.50 - Pain in unspecified joint, M54.2 - Cervicalgia, R73.02 - Impaired glucose tolerance (oral), R79.89 - Other specified abnormal findings of blood chemistry Lyme IgG/IgM w/reflex to WB 6 Months E78.00 - Pure hypercholesterolemia, unspecified, I10 - Essential (primary) hypertension, M25.50 - Pain in unspecified joint, M54.2 - Cervicalgia, R73.02 - Impaired glucose tolerance (oral), R79.89 - Other specified abnormal findings of blood chemistry Hemoglobin A1c 6 Months E78.00 - Pure hypercholesterolemia, unspecified, I10 - Essential (primary) hypertension, M25.50 - Pain in unspecified joint, M54.2 - Cervicalgia, R73.02 - Impaired glucose tolerance (oral), R79.89 - Other specified abnormal findings of blood chemistry IRON PROFILE Today R61 - Generalized hyperhidrosis Referrals Orthopedics Referral M79.671 - Pain in right foot, M79.672 - Pain in left foot Gastroenterology Referral Z12.11 - Encounter for screening for malignant neoplasm of colon Rheumatology Referral M25.50 - Pain in unspecified joint Medications: Refilled Ventolin HFA 90 mcg/actuation (albuterol sulfate) 2 puffs inhalation Q6H PRN 18 grams 2RF shortness of breath or wheezing 30 days NS J45.909 - Unspecified asthma, uncomplicated
== END 2025-09-18 09:51 | disposition home or self-care (01) ==
LOC: HO.HMCFM 09:07
PROVIDERS: PCP Internal Medicine; Visit Provider Internal Medicine
DX: I10 Essential (primary) hypertension (principal); E78.00 Pure hypercholesterolemia, unspecified; R61 Generalized hyperhidrosis; M25.50 Pain in unspecified joint; M79.671 Pain in right foot; M79.672 Pain in left foot

== ENCOUNTER → 2025-09-18 09:07 | Outpatient (BNVA) | payer MEDICARE, OTHER, SELFPAY | PROVIDERS: PCP Internal Medicine; Visit Provider Internal Medicine | DX: I10 Essential (primary) hypertension (principal); E78.00 Pure hypercholesterolemia, unspecified; R61 Generalized hyperhidrosis; M25.50 Pain in unspecified joint; M79.671 Pain in right foot; M79.672 Pain in left foot; Z79.899 Other long term (current) drug therapy | CPT/HCPCS: 99212 ==

== ENCOUNTER 2025-10-02 09:31 | Outpatient (AMB) | payer MEDICARE, OTHER, SELFPAY ==
--- OUTSIDE RECORDS SUMMARY | 2025-10-02 10:53 | XMS_ITS | Patient Health Record ---
[facility] Address [address] [facility] William Fel[place]ig[place] [address] Care Team Providers Care Van Owner Operator Name Role Phone Joao SMITH, Edie Primary Care Provider Unavail able Grant Siddiqi Unavailable [phone] Allergies Allergen (clinical drug ingredient) Drug/Non Drug [...] MG 1 capsule Orally belia ry 12 hrs; Duration: 10 day(s) 02/16/2017 Not-Taking Cephalexin 500 MG 1 capsule Orally belia ry 6 hrs; Duration: 5 day(s) Not-Taking Gabapentin 600 MG 1 [...] X ray : Foot, right 3V 11/19/2020 [id number] I&D ABSCESS- SIMPLE,SINGLE 022 [id number]- I&D ABSCESS-COMPLICATED,MULTI 05/2017 Insurance Providers Payer Name Payer Address Payer Phone Subscriber Number Group Number Insured Name Patient Relationship to Insured Coverage Start Date Coverage End Date Medicare [employer] [address] [facility] [place] [address] [id number] Marialuisa Cox Self - patient is the insured [facility] [address] [place] [address] [phone] [id number] Marialuisa Cox Self - patient is [...]
--- OUTSIDE RECORDS SUMMARY | 2025-10-02 10:53 | XMS_ITS | Clinical Summary ---
Author Organization [facility] Address [address] [place] [address] Phone Care Team Providers Care Dictaphone Mechanic Name Role Phone Pat Mcclain MD Primary Care Provider [phone] Allergies Active Allergy Reactions Criticality Noted Date Comments Lisinopril Loss of consciousness 09/21/2025 Metronidazole Rash 09/21/2025 Tetracycline Rash 09/21/2025 Medications albuterol HFA (PROAIR HFA ; PROVENTIL HFA ; VENTOLIN HFA) 90 mcg/actuation inhaler 09/19/2025 Active gabapentin (NEURONTIN) 800 mg tablet Take 1 tablet (800 mg total) by mouth at bedtime. 08/31/2025 Active metoprolol succinate (TOPROL-XL) 25 mg 24 hr tablet Take 1 tablet (25 mg total) by mouth 1 (one) time each day. 08/05/2025 Active oxyCODONE (ROXICODONE) 5 mg immediate release tablet Take 1 tablet (5 mg total) by mouth every 6 (six) hours if needed. 02/21/2025 Active simvastatin (ZOCOR) 10 mg tablet Take 1 tablet (10 mg total) by mouth. at bedtime. 08/27/2025 Active Encounters Date Type Department Care Team Description 09/21/2025 Telephone Gastroenterology - [address] [address] Jeyson Mcghee MD from Last 3 Months Social History Tobacco Use Types Packs/Day Years Used Date Smoking Tobacco: Never Assessed Comments Unknown Sex and Gender Information Value Date Recorded Sex Assigned at Female 09/21/2025 2:59 PM EST Legal Sex Female 7:06 PM EST Gender Identity Not on file Sexual Orientation Not on file Plan of Treatment Health Maintenance Due Date Last Done Comments Breast Cancer Screening 1955 Colorectal Cancer Screening: Colonoscopy 1955 DTaP,Tdap,and Td Vaccines (1 - Tdap) 02/23/1975 Pneumococcal Vaccine: 50+ Ye ars (1 of 1 - PCV) 02/23/2006 Zoster Vaccines (1 of 2) 02/23/2006 Depression Screening 10/12/2024 COVID-19 Vaccine (1 - 2024-2 6 season) 2025 Influenza Vaccine (#1) 2025 Falls Risk Assessment 09/21/2025 Hepatitis C Screening 09/21/2025 Medicare Annual Wellness Visit 09/21/2025 Osteoporosis Screening (Bone Density Screening) 09/21/2025 Social Influencers of Health Screening 09/21/2025 RSV Immunization Adult Patie nts (1 - 1-dose 75+ series) 02/23/2031 HIB Vaccines Aged Out No longer eligi ble based on patient's age to complete this topic HPV Vaccines Aged Out No longer eligi ble based on patient's age to complete this topic Hepatitis A Vaccines Aged Out No long er eligible based on patient's age to complete this topic Hepatitis B Vaccines Aged Out No long er eligible based on patient's age to complete this topic IPV Vaccines Aged Out No longer eligi ble based on patient's age to complete this topic MMR Vaccines Aged Out No longer eligi ble based on patient's age to complete this topic Meningococcal ACWY Vaccine Aged Out N o longer eligible based on patient's age to complete this topic Meningococcal B Vaccine Aged Out No l onger eligible based on patient's age to complete this topic RSV Immunization Patients Un duy 20 months Aged Out No longer eligible b ased on patient's age to complete this topic Varicella Vaccines Aged Out No longer eligible based on patient's age to complete this topic Insurance [employer] [place] MEDICARE ADVANTAGE Care Teams Dictaphone Mechanic Relationship Specialty Start Date End Date Pat Mcclain MD [address] [place] [address] PCP - General Internal Medicine 09/21/25
--- OUTSIDE RECORDS SUMMARY | 2025-10-02 10:53 | XMS_ITS | Clinical Summary ---
Author Organization [facility] Address [address] [place] [address] Phone Care Team Providers Care Helicopter Utility Aircrewman Name Role Phone Edie Ricardo MD Primary [...] topic Medical Devices Not on file Insurance [facility] [address] [place] [id number] HMO [facility] Address: [address] [address] Care Teams Helicopter Utility Aircrewman Relationship Specialty Start Date End Date Edie Ricardo MD [address] [place] [address] PCP - General Internal Medicine 02/12/18 Additional Source Comments The information contained in this document represents components of the legal health record. It is not the complete legal health record.[facility]
== END 2025-10-02 09:31 | disposition home or self-care (01) ==
LOC: HO.HMGAL 09:31
PROVIDERS: PCP Internal Medicine; Visit Provider Registered Nurse Emergency
DX: J30.89 Other allergic rhinitis (principal)
CPT/HCPCS: 95117; 95165